=== PATIENT | male | born 1995 | race Caucasian/White ===

== ENCOUNTER 2024-04-26 11:03 | Emergency (ER) | payer OTHER, SELFPAY ==
[2024-04-26 11:14] VITALS: PULSE 120; O2SAT 94
[2024-04-26 11:18] VITALS: BP 102/33; PULSE 103; RESP 22; TEMP 36.1; O2SAT 91; BMI 23.0
--- NOTE | 2024-04-26 11:28 | PC.NURSE ---
patient placed on 1L w/ capnography for monitoring at this time.
--- NOTE | 2024-04-26 11:33 | ED_ITS ---
HPI - Overdose General Chief Complaint: Overdose Stated Complaint: FOUND UNRESPONSIVE OUTSIDE NARCAN GIVEN Time Seen by Provider: 04/26/24 11:07 Source: EMS Mode of arrival: EMS History of Present Illness ED Provider: Dr Thomas HPI Narrative: 28-year-old male brought in by EMS after being found unresponsive outside with pinpoint pupils and received 2 mg of Narcan with good response, minimal respiratory support, remains somewhat altered at this time but good respiration. Related Data Allergies Allergy/AdvReac Type Severity Reaction Status Date / Time Unable to Assess Allergy Verified 04/26/24 11:21 Review of Systems Review of Systems: Yes Unobtainable due to mental condition PMFSH Past Medical History Source: nursing notes reviewed Social History Social History Do you have a plan to hurt others: No Plan Physical Exam Vital Signs: Vital Signs: Last Vital Signs Temp 96.9 F 04/26/24 11:18 Pulse 97 04/26/24 14:54 Resp 16 04/26/24 14:54 BP 104/63 04/26/24 14:54 Pulse Ox 98 04/26/24 14:54 O2 Del Method Nasal Cannula 04/26/24 14:54 O2 Flow Rate 1 04/26/24 14:54 BMI result Body Mass Index 23.0 VITAL SIGNS: Reviewed. GENERAL: Well developed, well nourished, in no acute distress. HEAD: Normocephalic/atraumatic EYES: PERRLA, EOMI EARS: Ext canals without abnormality NOSE: Nares patent bilateral OROPHARYNX: no oral lesions noted, posterior pharynx clear NECK: Supple, no adenopathy LUNGS: Normal breath sounds. No adventitious sounds or accessory muscle use. SpO2<90> CARDIOVASCULAR: Regular rate and rhythm without noted murmurs ABDOMEN: Soft, non-tender, non-distended with bowel sounds. MUSCULOSKELETAL: No tenderness, deformities, or effusions noted on gross inspection. EXTREMITIES: No cyanosis, clubbing or edema. SKIN: Inspection of the skin reveals no rashes NEUROLOGIC: Sleeping but arousable to pain and oriented x 2. Strength and sensation to light touch were grossly intact x 4. Medications Administered Discontinued Medications Generic Name Dose Route Start Last Admin Trade Name Freq PRN Reason Stop Dose Admin Naloxone HCl 4 mg 04/26/24 12:12 04/26/24 12:25 Naloxone Hcl Nasal 4 Mg [place] NOSTRILALT 04/26/24 12:13 4 mg ONCE ONE Administration Medical Decision Making Medical Decision Making MDM Narrative: 28-year-old male with history and clinical presentation of overdose, unknown substance, ordered urine tox screen but at this time observing on cardiac monitoring with supplemental oxygen of 1 L via nasal cannula and capnography. Patient's respiratory rate and depth are appropriate so no further Narcan being administered at this time. Patient required supplemental oxygen, but has been titrated off of the oxygen, denies any drug ingestion, is awake and alert and will be discharged with home Narcan. Differential Diagnosis Differential Diagnoses: The differential diagnosis associated with the presentation includes Please see the discussion above Admission/Observation Consideration of admission/observation: Escalation of care including admission/observation considered Please see the discussion above Critical Care Time Critical Care Time Critical Care Time: Yes Total Critical Care Time: 45 Attestation: I personally attest to this time spent taking care of the patient. Discharge Plan Discharge Clinical Impression: Drug overdose Patient Disposition: Still a Patient Instructions: Adult Overdose (ED) Additional Instructions: Return to the emergency room if you decide you would like to seek detox.
--- NOTE | 2024-04-26 11:40 | PC.NURSE ---
patient changed into hospital attire, belongings placed in [facility]
[2024-04-26] MEDS: Naloxone HCl Nasal 4 MG SPRAY NOSTRILALT (12:25)
--- NOTE | 2024-04-26 12:38 | PC.NURSE ---
administered 4mg nasal narcan, oxygen improved at this time. patient moving more freely in bed, turning and rolling in bed. placed on playground monitor, IV established in need of prn medication administration
--- NOTE | 2024-04-26 13:10 | PC.NURSE ---
patient more awake, attempting to stand and get out of bed. assisted back into bed by staff. patient had removed self from medical equipment, placed back on patient who is now resting quietly in bed.
[2024-04-26 14:54] VITALS: BP 104/63; PULSE 97; RESP 16; O2SAT 98
[2024-04-26] MEDS: Naloxone HCl Nasal TAKE HOME 4 MG SPRAY 8 MG NOSTRILALT (18:15)
[2024-04-26 18:38] VITALS: BP 115/63; PULSE 88; RESP 16; TEMP 37.2; O2SAT 97
[2024-04-26] MEDS: Ondansetron ODT 4 MG TAB.RAPDIS TRANSLINGU (18:38)
== END 2024-04-26 18:39 | disposition home or self-care (01) ==
PROVIDERS: Emergency Provider Student in an Organized Health Care Education/Training Program
DX: T50.901A Poisoning by unspecified drugs, medicaments and biological substances, accidental (unintentional), initial encounter (principal); Y92.9 Unspecified place or not applicable
CPT/HCPCS: 99284

== ENCOUNTER 2025-11-23 14:31 | Emergency (ER) | payer MEDICAID, SELFPAY ==
--- NOTE | ~2025-11-23 | XR_ITS ---
EXAMINATION: XR FOOT, RIGHT CLINICAL INFORMATION: Redness. IVD. osteo? COMPARISON: None available. TECHNIQUE: AP, lateral, and oblique views of the right foot. FINDINGS: There is loss of the cortical white line involving the tuft of the fifth digit on the oblique view. No other abnormalities are identified. XR/XR foot RT min 3V IMPRESSION: There is loss of the cortical white line of the medial aspect of the tuft of the fifth digit. If there is skin changes in this region or ulceration, consider osteomyelitis. Electronically signed by: David Sloan MD 11/23/2025 03:46 PM EST
--- NOTE | ~2025-11-23 | XR_ITS ---
EXAMINATION: XR TIBIA AND FIBULA, RIGHT CLINICAL INFORMATION: redness. iVD. osteo/ COMPARISON: None available. TECHNIQUE: AP and lateral views of the right tibia and fibula were obtained. FINDINGS: The bones and soft tissues are normal. No fracture. No osseous lesions. XR/XR tibia fibula RT 2V IMPRESSION: Unremarkable right tibia and fibula. Electronically signed by: David Sloan MD 11/23/2025 03:47 PM EST
--- NOTE | ~2025-11-23 | US_ITS ---
EXAMINATION: US TRIPLEX LOWER EXTREMITY, RIGHT CLINICAL INFORMATION: Swelling and redness right leg. COMPARISON: None available. TECHNIQUE: Color-flow triplex imaging with spectral analysis and compression Doppler were performed on the right lower extremity. FINDINGS: Respiratory variation, normal compression and augmented flow are noted throughout the right lower extremity. The visualized common femoral vein, superficial femoral vein, profunda femoral vein, popliteal vein and midcalf peroneal and posterior tibial venous segments show no evidence of deep venous thrombosis. There is no Alexis's cyst. US/US venous duplex LE RT IMPRESSION: No evidence of deep venous thrombosis involving the right lower extremity. Electronically signed by: Chapito Hoover MD 11/23/2025 04:33 PM EST
--- OUTSIDE RECORDS SUMMARY | 2025-11-23 10:45 | XMS_ITS | Encounter Summary ---
Author Organization [facility] Address [address] [place] [address] Care Team Providers Care Business Machines Teacher Name Role Phone Unavailable Primary Care Provider Unavailabl e Reason for Visit * Reason Comments OBAT F/U Encounter Details Date Type Department Care Team (Latest Contact Info) Description 11/23/2025 10:45 AM EST Clinical Support [facility] [address] [place] [address] Sylwia Dior RN Uncomplicated opioid dependence (CMS/HCC) (HCC) (Primary Dx); Tobacco use disorder; Cocaine use Social History Tobacco Use Types Packs/Day Years Used Date Smoking Tobacco: Every Day Cigarettes Smokeless Tobacco: Never Depression Answer Date Recorded Patient Health Questionnaire-9 Score 21 11/16/2025 Patient Health Questionnaire-9 Score 21 11/16/2025 Last PHQ-9: Questionnaire Data Not on file 1 01/17/2025 Housing Stability Answer Date Recorded What is your housing situation today? I do not have housing (Staying with others, in a hotel, in a fpc, living outside on the street, on a beach, in a car, or in a park 11/16/[address] you li ve. Do you have problems with any of the following? Not on file 11/16/2025 Depression Answer Date Recorded Patient Health Questionnaire-2 Score 6 11/16/2025 Sex and Gender Information Value Date Recorded Sex Assigned at Male 01/12/2025 9:39 AM EST Legal Sex Male 10:55 AM EST Gender Identity Male 01/12/2025 9:39 AM EST Sexual Orientation Straight 01/12/2025 9: 39 AM EST documented as of this encounter Progress Notes * Sylwia Dior RN - 11/23/2025 10:45 AM EST MD Intake Utox + BUP, ARMANDO, FEN, THC Jenaro returns to restart his treatment for opioid use disorder. He was released from residential yesterday. He is not on parole or probation. He is currently homeless with his girlfriend. He does not have anywhere to stay. Reports he was treated with Suboxone 17/03 while incarcerated. States this has been effective. Currently, he is not interested in Sublocade. Denies any substance use since he is discharged. He is aware that anything on the street can be contaminated with fentanyl. No adverse reactions. History of IV heroin and cocaine use. No adverse drug reactions. He is down because of how his life is right now. He is sad. He denies any current suicidal ideation. He knows Sukhi Ramos college sports coach and Natasha Alvarado team therapist. He does not drink alcohol. He smokes 3 to 4 cigarettes a day. He also smokes marijuana. For the per application packaging consultant. He cannot read or write. History of untreated Hep C. As above. Safe use reviewed. Given narcan & FEN test strips. Informed that he will develop WD if he suddenly stops Suboxone. He met with Sukhi college sports coach and Natasha Alvarado team therapist. Ree Hummel RN, did his intake. She is also a Hep C RN. Placed Hep C labs to which I added. Continue 17/03 daily. He is not interested in Sublocade. Declines PrEP-same partner for 5 years. They are both homeless. He will need to get a PCP. F/U 1 week. Cocaine use As above. Safe use reviewed. Given narcan and FEN test strips. Continue to monitor. Tobacco use disorder Periodically review. Diagnoses and all orders for this visit: Uncomplicated opioid dependence (CMS/HCC) ([facility]) - RPR (Monitor) with Reflex to Titer; Future - T-SPOT??.TB; Future - Chlamydia/N. Gonorrhoeae RNA, TMA, Vaginal - Buprenorphine HCl-Naloxone HCl (Suboxone) 8-2 MG SL film; Place 1 Film under the tongue 2 times daily. Tobacco use disorder Cocaine use TODAY 11/23/25 UTOX: +bup, armando, opi, fen, thc Jenaro presented today for OBAT RN IN PERSON VISIT for Opioid Use Disorder. He is alert and oriented. Speech clear, coherent and goal directed. Easily engaged. Tearful during interaction. States he's not doing well at all. He declined offer of assistance to access a detox today. He said he will see how he does over the next week. He has been using illicit opiates IV over the past two days. He is rubin ving difficulty with ambulation, walking with a limp. He showed telegraphic typewriter operator and MYRON Tomas who assisted with interpretation his foot and ankle. Right ankle was swollen, area on top of left foot and bottom of the top of left ankle was hardened to touch. He said he had injected in two areas on his foot area. Textile Designer noted blackened left middle toenail bed. Pt stated it became blackened after he injected into his foot. Textile Designer strongly encouraged him to go to the [facility] to be seen to avoid any further damageor injury to the area and risks of refusing assessment and treatment. He said he would but right now he had to go to [facility] where his girlfriend had an appt. He was strongly encouraged to be seen in theER at [facility]. He agreed to f/u. Plan: Buprenorphine-naloxone dosing schedule of 16/4 mg daily and management of side effects reviewed. Recovery support, risk reduction (including Narcan), and behavioral health attendance reviewed. Appointment for 1 week given. Patient expressed understanding and agreement with continuing plan of care. This information has been disclosed to you from records protected by federal confidentiality rules (42 CFR Part 2). The federal rules prohibit you from making any further disclosure of information inthis record that identifies a patient as having or having had a substance use disorder either directly, by reference to publicly available information, or through verification of such identification by another person unless further disclosure is expressly permitted by the written consent of the individual whose information is being disclosed or as otherwise permitted by (see2.3.1). The federal rules restrict any use of the information to investigate or prosecute with regard to a crime any patient with a substance use disorder, except as provided at 2.12??(5) and 2.65. documented in this encounter Plan of Treatment Upcoming Encounters Date Type Department Care Team (Late st Contact Info) Description 11/30/2025 11:15 AM EST Clinical Support [facility] [address] [place] [address] Sylwia Dior RN documented as of this encounter Procedures Procedure Name Priority Date/Time Associated Diagnosis Comments POCT CRISTIANA-14 URINE DRUG SCREEN Routine 11/23/2025 12:34 PM EST Uncomplicated opioid dependence (CMS/HCC) (HCC) documented in this encounter Results * (ABNORMAL) POCT CRISTIANA-14 Urine Drug Screen (11/23/2025 12:34 PM EST) Amphetamine Screen, Urine Negative Negative Barbiturate Screen, Urine Negative Negative Buprenophine Screen, Urine Positive(A) Negative Benzodiazepines Screen, Urine Negative Negative Cocaine Screen, Urine Positive(A) Negative Fentanyl, Urine Positive(A) Negative MDMA Urine Negative Negative ng/mL Methamphetamine Screen Urine Negative Negative Opiate Screen, Urine Positive(A) Negative Methadone Screen, Urine Negative Negative Oxycodone Screen, Urine Negative Negative Phencyclidine (PCP), Urine Negative Negative THC Positive(A) Negative Urine Urine specimen obtained by clean catch procedure / Unknown 11/23/2025 12:34 PM EST Maximino Garcia MD POINT OF CARE TEST ENTER/EDIT ORDERABLES Final Result documented in this encounter Visit Diagnoses Diagnosis Uncomplicated opioid dependence (CMS/HCC) (HCC)- Primary Tobacco use disorder Cocaine use documented in this encounter Additional Health Concerns Assessment Noted Time PHQ-9 Depression Total Score: 21 11/16/ 025 1:19 PM EST documented as of this encounter
[2025-11-23 14:52] VITALS: BP 118/63; PULSE 95; RESP 18; TEMP 36.8; O2SAT 95; BMI 19.5
--- NOTE | 2025-11-23 15:06 | ED.GENADULT ---
HPI - General Adult General Chief complaint: General Medical Stated complaint: R Leg Swollen- Hurts/ Cant Move Time Seen by Provider: 11/23/25 16:35 Source: patient, family and enrollment clerk Mode of arrival: ambulatory Limitations: no limitations History of Present Illness ED Provider: WILLIAM OMER narrative: 30-year-old male with past medical history of IVDA he is also on Suboxone. He admits to injecting in the right ankle. He started to notice redness and swelling of the area as well as some fevers and chills. Denies any nausea vomiting. On arrival he is already told me that he is not going to stay overnight but he is agreeable to lab work x-rays and ultrasound. I did try to talk to him and state that I was worried that he would have significant issues such as infection in the joint, sepsis, bone infection. He is aware and states he is not staying overnight he was told he could come back at any time. He tells me this is the 1st infection he has ever had from injecting. He admits he is not able to walk on the foot or bend his ankle. MD complaint: Cellulitis Onset (ago): day(s) (1) Location: right and lower extremity Radiation: non-radiation Severity: moderate Quality: aching Pain Consistency: constant Relieving factors: none Exacerbating factors: movement Associated symptoms: fever/chills, malaise and rash Treatments prior to arrival: none Related Data Previous Rx's ?Medication ?Instructions ?Recorded cephalexin 500 mg capsule 500 mg PO QID 7 days #28 caps 11/23/25 doxycycline hyclate 100 mg capsule 100 mg PO BID 7 days #14 caps 11/23/25 Allergies Allergy/AdvReac Type Severity Reaction Status Date / Time Unable to Assess Allergy Verified 11/23/25 14:54 Review of Systems Review of Systems: Yes all other systems are reviewed and are negative PMFSH Past Medical History Attestation statement: The following information was validated with the patient. Source: old records reviewed Medical History Intravenous drug abuse Social History Social History (Updated 11/23/25 @ 17:14 by Carri Martinez DO) Patient Tobacco Use Status: Tobacco use Unknown Use of substances other than those prescribed or required for medical reasons: Yes Substance Use Type: IV Drugs Advance Directives: No Advance Directives Information Provided: No Physical Exam ED Vital Signs: Vital Signs - 24 hr 11/23/25 14:52 11/23/25 19:00 11/23/25 19:37 Temperature 98.2 F 98.2 F 98.2 F Pulse Rate 95 98 98 Respiratory Rate 18 18 18 Blood Pressure 118/63 112/66 112/66 Pulse Oximetry 95 96 96 Oxygen Delivery Method Room Air Room Air Room Air BMI result Body Mass Index 19.5 Appearance: Alert. Oriented X3. No acute distress. Eyes: Pupils equal, round and reactive to light. ENT: Pharynx normal. Neck: Normal inspection. Neck supple. CVS: Normal heart rate and rhythm. Pulses normal. Respiratory: No respiratory distress. Breath sounds normal. Abdomen: Soft and nontender. Skin: Skin warm and dry. Normal skin color. Normal skin turgor. Extremities: His right leg is red and hot to touch she has areas of ecchymosis, his 3rd toe nail is ecchymotic the toe itself is red and swollen, he has sensation intact and he has a 2+ DP pulse. I am not able to range the joint due to pain though he does not have a massive effusion. There are red streaks going up the leg as well Neuro: Oriented X 3. No motor deficit. No sensory deficit. CN2-12 intact Course Course Course Narrative: RME: 30-year-old male presents to ED for right ankle leg swelling after injecting himself with heroin couple of days ago. Now right leg as foot swollen red. labs, xray, and uS orderd Medications Administered Discontinued Medications Generic Name Dose Route Start Last Admin Trade Name Freq PRN Reason Stop Dose Admin Diphenhydramine HCl 25 mg 11/23/25 19:19 11/23/25 19:21 Diphenhydramine Hcl 50 Mg/Ml Vial IVPUSH 11/23/25 19:20 25 mg ONCE ONE Administration Piperacillin Sod/Tazobactam 50 mls @ 100 mls/hr 11/23/25 16:50 11/23/25 17:49 Sod 3.375 gm/ Sodium Chloride IV 11/23/25 17:19 Infused ONCE ONE Infusion Vancomycin HCl 1,500 mg/ 500 mls @ 333.333 mls/hr 11/23/25 16:50 11/23/25 19:14 Sodium Chloride IV 11/23/25 18:19 Infused ONCE ONE Infusion Medical Decision Making Medical Decision Making MDM Narrative: 30-year-old male with past medical history IVDA here with 1 day of right-sided cellulitis to the foot and ankle. At this time I started labs, cultures, x-rays. He is neurovascularly intact there is no signs of necrotizing infection there is no crepitus compartments are soft and compressible. It is not rapidly spread for his reports. I am going to admit him on IV antibiotics but after discussion with them he adamantly refuses he is alert and oriented x3 he is able to answer all questions he is also able to repeat repeat back to me my concerns of why he should stay due to this infection at this time I will dose with IV antibiotics and DC him home with oral antibiotics as well as limitation return at any time Differential Diagnosis Differential Diagnoses: The differential diagnosis associated with the presentation includes Cellulitis, septic joint, abscess, osteomyelitis Admission/Observation Consideration of admission/observation: Escalation of care including admission/observation considered Patient is leaving AMA Lab Data [facility] Lab Attestation statement: I reviewed the patient's lab results. 11/23/25 16:40 11/23/25 16:40 Labs: Lab Results 11/23/25 11/23/25 Range/Units 16:40 17:15 WBC 7.0 (4.8-10.8) X10*3/uL RBC 4.97 (4.60-5.80) X10*6/uL Hgb 14.2 (14.0-18.0) g/dl Hct 42.3 (42.0-52.0) % MCV 85.1 (80.0-98.0) fL MCH 28.6 (27.0-33.0) pg MCHC 33.6 (31.0-36.0) g/dl RDW 12.9 (11.0-16.0) % Plt Count 193 (160-400) X10*3/uL MPV 12.9 H (9.4-12.4) fL Immature Gran % (Auto) 0.3 (0.0-0.4) % Neut % (Auto) 66.9 (45-73) % Lymph % (Auto) 21.8 (20-40) % Oliver % (Auto) 10.0 (2-11) % Eos % (Auto) 0.3 (0-4) % Baso % (Auto) 0.7 (0-2) % Lymph # (Auto) 1.5 (1.2-4.9) X10*3/uL Oliver # (Auto) 0.7 (0.1-1.2) X10*3/uL Eos # (Auto) 0.0 (0.0-0.4) X10*3/uL Baso # (Auto) 0.1 (0.0-0.2) X10*3/uL Abs Immat Gran (auto) 0.02 (0.00-0.03) X10*3/uL Absolute Neuts (auto) 4.7 (2.0-8.3) x10*3/uL Absolute Nucleated RBC 0.000 (0.0-0.012) X10*3/uL Nucleated RBC % (auto) 0.0 (0.0-0.2) /100WBC ESR 5 (1-15) MM/HR Sodium 140 (135-145) mmol/L Potassium 4.0 (3.3-5.1) mmol/L Chloride 100 (96-108) mmol/L Carbon Dioxide 27 (22-29) mmol/L Anion Gap 17 (12-20) BUN 14 (9-16) mg/dL Creatinine 0.80 (0.5-1.4) mg/dL Estim Creat Clear Calc 122.3 Estimated GFR > 60 Random Glucose 77 (60-115) mg/dL Lactic Acid 1.2 (0.5-2.0) mmol/L Calcium 9.8 (8.4-10.2) mg/dL Total Bilirubin 1.4 H (0.0-1.0) mg/dL AST 129 H (5-37) U/L ALT 87 H (0-40) U/L Alkaline Phosphatase 82 (39-117) U/L C-Reactive Protein 0.83 H (< or = 0.50) mg/dL Total Protein 8.4 H (6.5-8.0) g/dL Albumin 5.1 H (3.5-5.0) g/dL Independent Interpretation I performed an independent interpretation of an: Plain X-Ray (Bony erosion on the toe) and Ultrasound (No DVT) Radiology Impression Discussion of test interpretation with radiology: I have reviewed the radiologist's reading. Independent Historian Clinical information obtained from an independent historian. History obtained from or confirmed by: Friend and Other Prescription Management I considered prescription management with: Antibiotic Discharge Plan Discharge Clinical Impression: Cellulitis of right ankle Patient Disposition: Left Against Medical Advice Instructions: Cellulitis (ED), Against Medical Advice (ED) Additional Instructions: You were offered admission but refused you can return at any time I am Very concerned that you will have a worsening infection that can go into your blood stream This could also affect your ankle joint Take all antibiotics Remember you can return at any time On a cephalosporin?antibiotic, softer bowel movements are to be expected. Call your provider if you move your bowels more than 4 times a day, your bowel movements are almost all liquid, or you get a rash.?? On doxycycline, do not take pills immediately before going to bed and swallow pills with plenty of water. Avoid direct sunlight, iron, antacids, and Pepto Bismol. Call your provider if you develop new ringing in your ears, new problems hearing, dizziness, difficulty swallowing, rash, abdominal discomfort, nausea, or diarrhea.? Prescriptions: New doxycycline hyclate 100 mg capsule 100 mg PO BID 7 Days Qty: 14 0RF cephalexin 500 mg capsule 500 mg PO QID 7 Days Qty: 28 0RF Interventions: ED Discharge Assessment Last Done: 11/23/25 19:37 Discharge Date/Time: 11/23/25 19:37 Print Language: Faroese
[2025-11-23 16:45] LABS: MANUAL DIFF FLAG NO
[2025-11-23 16:46] LABS: Hematocrit 42.3 % (42.0-52.0); Hemoglobin 14.2 g/dl (14.0-18.0); Imm Gran Abs Auto 0.02 X10*3/uL (0.00-0.03); Imm Gran Pct Auto 0.3 % (0.0-0.4); Lymphocytes Absolute Auto 1.5 X10*3/uL (1.2-4.9); Mean Corpuscular HGB Conc 33.6 g/dl (31.0-36.0); Mean Corpuscular Hemoglobin 28.6 pg (27.0-33.0); Mean Corpuscular Volume 85.1 fL (80.0-98.0); NRBC Abs Auto 0.000 X10*3/uL (0.0-0.012); NRBC Pct Auto 0.0 /100WBC (0.0-0.2); Platelet Count 193 X10*3/uL (160-400); Red Blood Count 4.97 X10*6/uL (4.60-5.80); White Blood Count 7.0 X10*3/uL (4.8-10.8)
[2025-11-23 17:01] LABS: Alanine Aminotransferase 87 U/L (0-40); Albumin Level 5.1 g/dL (3.5-5.0); Alkaline Phosphatase 82 U/L (39-117); Anion Gap 17 (12-20); Aspartate Amino Transferase 129 U/L (5-37); Blood Urea Nitrogen 14 mg/dL (9-16); Calcium 9.8 mg/dL (8.4-10.2); Carbon Dioxide 27 mmol/L (22-29); Chloride 100 mmol/L (96-108); Creatinine Clr Calc Pharmacy 122.3; Estimated Glomerular Filt Rate > 60; Potassium 4.0 mmol/L (3.3-5.1); Sodium 140 mmol/L (135-145); Total Protein 8.4 g/dL (6.5-8.0)
--- NOTE | 2025-11-23 17:08 | PC.NURSE ---
attempted iv x 2, another nurse attempt x 1. tom PALMA attempting U/s guided iv now,.
--- OUTSIDE RECORDS SUMMARY | 2025-11-23 17:10 | XMS_ITS | Encounter Summary ---
Author Organization [employer] [facility] Address [address] 7t [place] [address] Care Team Providers Care Streetcar Operator Name Role Phone Unavailable Primary Care Provider Unavailabl e Encounter Details Date Type Department Care Team (Late st Contact Info) Description 11/23/2025 Orders Only GENERIC EXTERNAL DATA DEPARTMENT Provider, Generic External Data Social History Tobacco Use Types Packs/Day Years [...] with others, in a hotel, in a custodial, living outside on the street, on a [...] AM EST documented as of this encounter Plan of Treatment Upcoming Encounters Date Type Department Care Team (Late st Contact Info) Description 11/30/2025 11:15 AM EST Clinical Support [facility]INE [address] [place] [address] Sylwia Dior RN documented as of this encounter Procedures Procedure Name Priority Date/Time Associated Diagnosis Comments SED RATE BY MODIFIED WESTERGREN Routine 11/23/2025 4:40 PM EST C-REACTIVE PROTEIN Routine 11/23/2025 4: 40 PM EST COMPREHENSIVE METABOLIC PANEL Routine 11/23/2025 4:40 PM EST documented in this encounter Results * (ABNORMAL) C-reactive Protein (11/23/2025 4:40 PM EST) C Reactive Protein 0.83(H) < or = 0.50 mg/dL [facility] 11/23/2025 4:40 PM EST 11/23/2025 4:43 PM EST Narrative [facility] - 11/23/2025 5:01 PM EST uto to collect x3 us Generic External Data Provider LAB BLOOD ORDERAB LES Final Result [facility] [address] [place] [phone] * (ABNORMAL) Comprehensive Metabolic Panel (11/23/2025 4:40 PM EST) Pathologist [facility] [place] Sodium 140 135 - 145 mmol/L [facility] Potassium 4.0 3.3 - 5.1 mmol/L [facility] Comment:Mild Hemolysis.Inter pret result with caution Chloride 100 96 - 108 mmol/L [facility] Carbon Dioxide 27 22 - 29 mmol/L [facility] Anion Gap 17 12 - 20 [facility] Urea Nitrogen (BUN) 14 9 - 16 mg/dL [facility] Creatinine, Serum 0.80 0.5 - 1.4 mg/dL [facility] Creatinine Clr Calc Pharmacy 122.3 [facility] Comment:eGFR (calculated fro m the MDRD study equation) and eCrCl(calculated from the Cockcroft-Gault equation) are based ondifferent parameters and may not yield comparable results.If eCrCl result is absurd, please check patient'sheight/weight. Estimated Glomerular Filt Rate >60 [facility] Comment:Chronic Kidney Disea se: Estimated GFR < 60 mL/min/1.42t4Irvccp Kidney Disease: Estimated GFR < 15 mL/min/1.73m2 Glucose 77 60 - 115 mg/dL [facility] Calcium 9.8 8.4 - 10.2 mg/dL [facility] Bilirubin, Total 1.4(H) 0.0 - 1.0 mg/dL [facility] Aspartate Amino Transferase 129(H) 5 - 37 U/L [facility] Comment:Mild Hemolysis.Inter pret result with caution Alanine Aminotransferase 87(H) 0 - 40 U/L [facility] Total Protein 8.4(H) 6.5 - 8.0 g/dL [facility] Comment:Mild Hemolysis.Inter pret result with caution Albumin Level 5.1(H) 3.5 - 5.0 g/dL [facility] Alkaline Phosphatase 82 39 - 117 U/L [facility] 11/23/2025 4:40 PM EST 11/23/2025 4:43 PM EST Narrative [facility] - 11/23/2025 5:01 PM EST uto to collect x3 us Generic External Data Provider LAB BLOOD ORDERAB LES Final Result [facility] [address] [place] [phone] * Sed Rate by Modified Westergren (11/23/2025 4:40 PM EST) Erythrocyte Sedimentation Rate 5 1 - 15 MM/HR [facility] Comment:Patients with polycy themia and many hemoglobin abnormalitiesmay have depressed sed rates whereas patients with anemiamay have elevated sed rates. 11/23/2025 4:40 PM EST 11/23/2025 4:43 PM EST Narrative [facility] - 11/23/2025 4:51 PM EST uto to collect x3 us Generic External Data Provider LAB BLOOD ORDERAB LES Final Result [facility] [address] [place] [address] [phone] documented in this encounter Visit Diagnoses Not on filedocumented in this encounter Additional Health Concerns Assessment Noted Time PHQ-9 Depression Total Score: 21 12/16/2 025 1:19 PM EST documented as of this encounter
--- OUTSIDE RECORDS SUMMARY | 2025-11-23 17:10 | XMS_ITS | Encounter Summary ---
Author Organization [employer] [facility] Address [address]t [place] [address] Care Team Providers Care Solutions Executive Cloud Sales Name Role Phone Unavailable Primary Care Provider Unavailabl e Reason for Visit * Reason Onset Date Comments Med Refill 11/17/2025 Encounter Details Date Type Department Care Team (Late Contact Info) Description 11/17/2025 Refill [facility] [address] [place] [address] Sylwia Dior RN Uncomplicated opioid dependence (CMS/HCC) ([facility]) Social History Tobacco Use Types Packs/Day Years [...] with others, in a hotel, in a group home, living outside on the street, on a [...] Description 11/30/2025 11:15 AM EST Clinical Support [facility] [address] [place] [address] Sylwia Dior RN documented as of this encounter Visit Diagnoses Diagnosis Uncomplicated opioid dependence (CMS/HCC) (HCC) documented in this encounter Additional Health Concerns Assessment Noted Time PHQ-9 Depression Total Score: 21 025 1:19 PM EST documented as of this encounter
--- OUTSIDE RECORDS SUMMARY | 2025-11-23 17:10 | XMS_ITS | Encounter Summary ---
Author Organization [employer] [facility] Address [address] [place] [address] 7t [place] [address] Care Team Providers Care Anesthesiologist Assistant Certified Name Role Phone Unavailable Primary Care Provider Unavailabl e Reason for Visit * Reason Onset Date Comments hep c tx 11/23/2025 Encounter Details Date Type Department Care Team ([facility] st Contact Info) Description 11/23/2025 Telephone [facility] [address] [place] [address] Ree Richardson RN [address] [place] [address] hep c tx Social History Tobacco Use Types Packs/Day Years [...] with others, in a hotel, in a fdc, living outside on the street, on a [...] AM EST documented as of this encounter Miscellaneous Notes * Telephone Encounter - Ree Richardson RN - 11/23/2025 12:25 PM EST RN spoke to pt and reminded of hep c labs, pt agrees to POC and will complete documented in this encounter Plan of Treatment Upcoming Encounters Date Type Department Care Team (Late st Contact Info) Description 11/30/2025 11:15 AM EST Clinical Support [facility] [address] [place] [phone] Sylwia Dior RN documented as of this encounter Visit Diagnoses Not on filedocumented in this encounter Additional Health Concerns Assessment Noted Time PHQ-9 Depression Total Score: 21 025 1:19 PM EST documented as of this encounter
--- OUTSIDE RECORDS SUMMARY | 2025-11-23 17:10 | XMS_ITS | Encounter Summary ---
Author Organization [employer] [facility] Address [address] 7t [place] [address] Care Team Providers Care Construction Safety Manager Name Role Phone Unavailable Primary Care Provider Unavailabl e Encounter Details Date Type Department Care Team (Late st Contact Info) Description 03/10/[address] [address] Maximino Garcia MD [address] [place] [phone] Social History Tobacco Use Types Packs/Day Years Used Date Smoking Tobacco: Every Day Cigarettes Smokeless Tobacco: Never Depression Answer Date Recorded Patient Health Questionnaire-9 Score 21 02/16/2025 Patient Health Questionnaire-9 Score 21 02/16/2025 Last PHQ-9: Questionnaire Data Not on file 0 02/16/2025 Depression Answer Date Recorded Patient Health Questionnaire-2 Score 6 02/16/2025 Sex and Gender Information Value Date Recorded Sex Assigned at Male 01/12/2025 9:39 AM EST Legal Sex Male 10:55 AM EST Gender Identity Male 01/12/2025 9:39 AM EST Sexual Orientation Straight 01/12/2025 9: 39 AM EST documented as of this encounter Plan of Treatment Upcoming Encounters Date Type Department Care Team (Late st Contact Info) Description 11/30/2025 11:15 AM EST Clinical Support [address] [address] Sylwia Dior RN documented as of this encounter Visit Diagnoses Not on filedocumented in this encounter Additional Health Concerns Assessment Noted Time PHQ-9 Depression Total Score: 21 025 11:24 AM EDT documented as of this encounter
--- OUTSIDE RECORDS SUMMARY | 2025-11-23 17:10 | XMS_ITS | Encounter Summary ---
Author Organization [employer] [facility] Address [address] [place] [address] Care Team Providers Care Processes Chemical Design Engineer Name Role Phone Unavailable Primary Care Provider Unavailabl e Encounter Details Date Type Department Care Team (Latest Contact Info) Description 11/23/2025 Travel Social History Tobacco Use Types Packs/Day Years [...] Description 11/30/2025 11:15 AM EST Clinical Support [facility] [address] [place] [address] Sylwia Dior RN documented as of this encounter Visit Diagnoses Not on filedocumented in this encounter Additional Health Concerns Assessment Noted Time PHQ-9 Depression Total Score: 21 11/16/ 025 1:19 PM EST documented as of this encounter
--- OUTSIDE RECORDS SUMMARY | 2025-11-23 17:10 | XMS_ITS | Encounter Summary ---
Author Organization [employer] [facility] Address [address] 7[address] [place] [address] Care Team Providers Care Machines Technician Name Role Phone Unavailable Primary Care Provider Unavailabl e Encounter Details Date Type Department Care Team (Late st Contact Info) Description 01/11/2025 Orders Only [facility] [address] [place] [phone] Ray Villegas MD [address] [place] [phone] Social History Tobacco Use Types Packs/Day Years Used Date Smoking Tobacco: Never Assessed Sex and Gender Information Value Date Recorded Sex Assigned at Male 01/12/2025 9:39 AM EST Legal Sex Male 10:55 AM EST Gender Identity Male 01/12/2025 9:39 AM EST Sexual Orientation Straight 01/12/2025 9: 39 AM EST documented as of this encounter Plan of Treatment Upcoming Encounters Date Type Department Care Team (Late st Contact Info) Description 11/30/2025 11:15 AM EST Clinical Support [facility] [address] [place] [phone] Sylwia Dior RN documented as of this encounter Visit Diagnoses Not on filedocumented in this encounter
--- OUTSIDE RECORDS SUMMARY | 2025-11-23 17:10 | XMS_ITS | Clinical Summary ---
Author Organization [employer] Address [address] 7[address] [place] [address] Care Team Providers Care Photogeologist Name Role Phone Unavailable Primary Care Provider Unavailabl e Allergies No known active allergies Medications * This document contains information received from the source organization and may not represent a complete record from that organization. hydrOXYzine pamoate (Vistaril) 50 MG capsule Take 1 capsule (50 mg) by mouth every 6 (six) hours if needed for anxiety. 10 capsule 01/11/20 25 Active cloNIDine (Catapres) 0.1 MG tablet Take 1 tablet (0.1 mg) by mouth every 8 (eight) hours if needed (withdrawal). 8 tablet 01/11/20 25 026 Active docusate sodium (Colace) 100 MG capsuleIndica tions:Uncompl icated opioid use 1-2 capsules PO at bedtime prn constipation (stool softener) 60 capsule 3 01/12/20 25 Active acetaminophen (Tylenol) 500 MG tablet Take 2 tablets (1,000 mg) by mouth every 6 (six) hours if needed for moderate pain or fever. 30 tablet 02/10/20 25 Active ibuprofen 400 MG tablet Take 1 tablet (400 mg) by mouth every 6 (six) hours if needed for moderate pain or fever for up to 30 doses. 30 tablet 02/10/20 25 Active ondansetron (Zofran) 4 MG tablet Take 1 tablet (4 mg) by mouth every 8 (eight) hours if needed for nausea or vomiting. 12 tablet 02/10/20 25 Active naloxone (Narcan) 4 mg/0.1 mL nasal spray Administer 1 spray (4 mg) into affected nostril(s) if needed for opioid reversal. May repeat every 2-3 minutes if needed, alternating nostrils, until medical assistance becomes available. 2 each 3 06/01/20 25 026 Active Buprenorphine HCl-Naloxone HCl (Suboxone) 8-2 MG SL filmIndicatio ns:Uncomplica daisy opioid dependence (CMS/HCC) (HCC) Place 1 Film under the tongue 2 times daily. 14 Film 11/22/20 25 025 Active buprenorphine -naloxone (Suboxone) 12-3 MG per sublingual filmIndicatio ns:Uncomplica daisy opioid use Place 1 Film under the tongue Once per day for 7 days. 7 Film 02/27/20 25 025 Discontinued(D ose adjustment) Buprenorphine HCl-Naloxone HCl (Suboxone) 8-2 MG SL filmIndicatio ns:Uncomplica daisy opioid dependence (CMS/HCC) (HCC) Place 1 Film under the tongue Once per day for 7 days. 7 Film 06/01/20 25 025 Discontinued(D ose adjustment) Buprenorphine HCl-Naloxone HCl (Suboxone) 8-2 MG SL filmIndicatio ns:Uncomplica daisy opioid dependence (CMS/HCC) (HCC) Place 1 Film under the tongue 2 times daily. 15 Film 11:06 AM EST 11/16/20 25 025 Discontinued(R eorder (will not trigger notification to Pharmacy)) Active Problems Problem Noted Date Diagnosed Date Homeless 06/01/2025 Severe episode of recurrent major depressive disorder, without psychotic features (CMS/HCC) 02/01/2025 SWAPNIL (generalized anxiety disorder) 02/01/2025 PTSD (post-traumatic stress disorder) 02/01/2025 Opioid use disorder 02/01/2025 Cannabis use disorder 02/01/2025 Encounters * This document contains information received from the source organization and may not represent a complete record from that organization. Date Type Department Care Team Description 11/23/2025 10:45 AM EST Clinical Support [facility] [address] [place] [phone] Sylwia Dior RN Uncomplicated opioid dependence (CMS/HCC) (HCC) (Primary Dx); Tobacco use disorder; Cocaine use 11/23/2025 Orders Only GENERIC EXTERNAL DATA DEPARTMENT Provider, Generic External Data 11/23/[address] [address] Ree Richardson RN hep c tx 11/23/2025 Travel 11/17/[address] [address] Sylwia Dior RN Uncomplicated opioid dependence (CMS/HCC) (HCC) 11/16/2025 11:15 AM EST Office Visit [address] [address] Maximino Garcia MD Uncomplicated opioid dependence (CMS/HCC) ([facility]) (Primary Dx); Tobacco use disorder; Cocaine use 11/16/2025 10:30 AM EST Office Visit [address] [address] Ree Richardson RN Uncomplicated opioid dependence (CMS/HCC) (HCC) 11/16/2025 Orders Only [address] [address] Ree Richardson RN Acute 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 11/16/[address] [address] Ree Richardson RN 11/16/[address] [address] Ree Richardson RN 11/16/2025 Travel from Last 3 Months Immunizations Immunization Administration Dates Next Due Hep A, Adult 09/17/2025 Influenza injectable quadrivalent preservative f ree 11/19/2023 Influenza, seasonal, injectable, preservative fr ee 01/19/2025 Pfizer Covid-19 Vaccine 12+ 01/19/2025 Social History Tobacco Use Types Packs/Day Years Used Date Smoking Tobacco: Every Day Cigarettes Smokeless Tobacco: Never Tobacco Cessation:Ready to Q uit: Not Asked; Counseling Given: Not Answered Depression Answer Date Recorded Patient Health Questionnaire-9 Score 21 11/16/2025 Patient Health Questionnaire-9 Score 21 11/16/2025 Last PHQ-9: Questionnaire Data Not on file 1 01/17/2025 Housing Stability Answer Date Recorded What is your housing situation today? I do not have housing (Staying with others, in a hotel, in a assisted, living outside on the street, on a [...] Orientation Straight 01/12/2025 9: 39 AM EST Last Filed Vital Signs Vital Sign Reading Time Taken Comments Blood Pressure 130/76 11/16/2025 12:00 PM EST Pulse 108 11/16/2025 12:00 PM EST Temperature 36.3 C (97.3 F) 11/16/2025 12:00 PM EST Respiratory Rate 18 11/16/2025 12:00 PM EST Oxygen Saturation 99% 02/09/2025 9:40 AM EDT Inhaled Oxygen Concentration - - Weight 70.3 kg (155 lb) 11/16/2025 12:00 PM EST Height - - Body Mass Index - - Plan of Treatment Upcoming Encounters Date Type Department Care Team (Late st Contact Info) Description 11/30/2025 11:15 AM EST Clinical Support [facility] [address] [place] [phone] Sylwia Dior, RN Health Maintenance Due Date Last Done Comments HIV Screening 1996 Lipid Panel 1996 SDOH Screening 1996 Disability Screening 1996 Family Planning (PISQ) 2011 HPV Vaccines (1 - Male 3-dos e series) 2011 DTaP/Tdap/Td Vaccines (1 - Tdap) 2015 Hepatitis B Vaccines (1 of 3 - 19+ 3-dose series) 2015 Pneumococcal Vaccine: Pediatrics (0 to 5 Years) and At-Risk Patients (6 to 49) Years (1 of 2 - PCV) 2015 COVID-19 Vaccine (3 - 2024-2 6 season) 2025 01/19/2025, 11/19/2023 Influenza Vaccine (#1) 2025 , 11/19/2023 Alcohol/Substance Use Screening 02/16/2026 02/16/2025 Hepatitis A Vaccines (2 of 2 - Risk 2-dose series) 03/18/2026 09/17/2025 Depression Monitoring 05/17/2026 11/16/2025 , 11/16/2025 Tobacco Screening 06/01/2026 06/01/2025 Zoster Vaccines (1 of 2) 2046 RSV Patients and Patients Aged 60 years or older (1 - 1-dose 75+ series) 2071 HIB Vaccines Aged Out No longer eligi ble based on patient's age to complete this topic IPV Vaccines Aged Out No longer eligi ble based on patient's age to complete this topic Meningococcal B Vaccine Aged Out No l onger eligible based on patient's age to complete this topic Meningococcal Vaccine Aged Out No guy fortunato eligible based on patient's age to complete this topic RSV under 20 months Aged Out No longe r eligible based on patient's age to complete this topic Rotavirus Vaccines Aged Out No longer eligible based on patient's age to complete this topic Procedures Procedure Name Priority Date/Time Associated Diagnosis Comments C-REACTIVE PROTEIN Routine 11/23/2025 4: 40 PM EST COMPREHENSIVE METABOLIC PANEL Routine 11/23/2025 4:40 PM EST SED RATE BY MODIFIED WESTERGREN Routine 11/23/2025 4:40 PM EST POCT CRISTIANA-14 URINE DRUG SCREEN Routine 11/23/2025 12:34 PM EST Uncomplicated opioid dependence (CMS/HCC) (HCC) POCT CRISTIANA-14 URINE DRUG SCREEN Routine 11/16/2025 1:11 PM EST Uncomplicated opioid dependence (CMS/HCC) (HCC) from Last 3 Months Results * Sed Rate by Modified Westergren (11/23/2025 4:40 PM EST) Erythrocyte Sedimentation Rate 5 1 - 15 MM/HR [facility] Comment:Patients with polycy themia and many hemoglobin abnormalitiesmay have depressed sed rates whereas patients with anemiamay have elevated sed rates. 11/23/2025 4:40 PM EST 11/23/2025 4:43 PM EST [facility] - 11/23/2025 4:51 PM EST uto to collect x3 Generic External Data Provider LAB BLOOD ORDERAB LES Final Result Performing Organization Address [facility] Co de Phone Number [facility] [address] [place] [phone] * (ABNORMAL) C-reactive Protein (11/23/2025 4:40 PM EST) [facility] C Reactive Protein 0.83(H) < or = 0.50 mg/dL [facility] 11/23/2025 4:40 PM EST 11/23/2025 4:43 PM EST [facility] - 11/23/2025 5:01 PM EST uto to collect x3 Generic External Data Provider LAB BLOOD ORDERAB LES Final Result Performing Organization Address [facility] de Phone Number [facility] [address] [place] [phone] * (ABNORMAL) Comprehensive Metabolic Panel (11/23/2025 4:40 PM EST) [facility] Sodium 140 135 - 145 mmol/L [facility] Potassium 4.0 3.3 - 5.1 mmol/L [facility] Comment:Mild Hemolysis.Inter pret result with caution Chloride 100 96 - 108 mmol/L [facility] Carbon Dioxide 27 22 - 29 mmol/L [facility] Anion Gap 17 12 - 20 [facility] Urea Nitrogen (BUN) 14 9 - 16 mg/dL [facility] Creatinine, Serum 0.80 0.5 - 1.4 mg/dL [facility] Creatinine Clr Calc Pharmacy 122.3 [facility] Comment:eGFR (calculated fro m the MDRD study equation) and eCrCl(calculated from the Cockcroft-Gault equation) are based ondifferent parameters and may not yield comparable results.If eCrCl result is absurd, please check patient'sheight/weight. Estimated Glomerular Filt Rate >60 [facility] Comment:Chronic Kidney Disea se: Estimated GFR < 60 mL/min/1.78s6Icghnf Kidney Disease: Estimated GFR < 15 mL/min/1.73m2 Glucose 77 60 - 115 mg/dL [facility] Calcium 9.8 8.4 - 10.2 mg/dL [facility] Bilirubin, Total 1.4(H) 0.0 - 1.0 mg/dL [facility] Aspartate Amino Transferase 129(H) 5 - 37 U/L [facility] Comment:Mild Hemolysis.Inter pret result with caution Alanine Aminotransferase 87(H) 0 - 40 U/L [facility] Total Protein 8.4(H) 6.5 - 8.0 g/dL [facility] Comment:Mild Hemolysis.Inter pret result with caution Albumin Level 5.1(H) 3.5 - 5.0 g/dL [facility] Alkaline Phosphatase 82 39 - 117 U/L [facility] 11/23/2025 4:40 PM EST 11/23/2025 4:43 PM EST Narrative [facility] - 11/23/2025 5:01 PM EST uto to collect x3 us Generic External Data Provider LAB BLOOD ORDERAB LES Final Result [facility] [address] [place] [address] [phone] * (ABNORMAL) POCT CRISTIANA-14 Urine Drug Screen (11/23/2025 12:34 PM EST) Only the most recent of2 resultswithin the time period is included. Amphetamine Screen, Urine Negative Negative Barbiturate Screen, [...] OF CARE TEST ENTER/EDIT ORDERABLES Final Result from Last 3 Months Insurance HS [facility] C3
[2025-11-23 19:00] VITALS: BP 112/66; PULSE 98; RESP 18; TEMP 36.8; O2SAT 96
[2025-11-23 19:37] VITALS: BP 112/66; PULSE 98; RESP 18; TEMP 36.8; O2SAT 96
== END 2025-11-23 19:37 | disposition left against medical advice (07) ==
PROVIDERS: Physician Assistant; Emergency Provider Emergency Medicine
DX: L03.115 Cellulitis of right lower limb (principal); R60.0 Localized edema; Z53.29 Procedure and treatment not carried out because of patient's decision for other reasons
CPT/HCPCS: 36415; 73590; 73630; 80053; 83605; 85025; 85652; 86140; 87040; 93971; 96365; 96367; 96375; 99284; J1200; J2543; J3374

== ENCOUNTER → 2025-11-23 15:11 | Outpatient (BNV) | payer OTHER, SELFPAY | PROVIDERS: Visit Provider Radiology Diagnostic Radiology | DX: R22.41 Localized swelling, mass and lump, right lower limb (principal); R21 Rash and other nonspecific skin eruption | CPT/HCPCS: 73590; 73630; 93971 ==

== ENCOUNTER 2025-11-24 22:32 | Inpatient (IN) | payer MEDICAID, SELFPAY ==
--- OUTSIDE RECORDS SUMMARY | 2025-11-23 10:45 | XMS_ITS | Encounter Summary ---
Author Organization [employer] [facility] Address [address] [place] [address] Care Team Providers Care Garment Turner Name Role Phone Unavailable Primary Care Provider Unavailabl e Reason for Visit * Reason Comments OBAT F/U Encounter Details Date Type Department Care Team (Latest Contact Info) Description 11/23/2025 10:45 AM EST Clinical Support [facility] [address] [place] [address] Sylwia Dior RN Uncomplicated opioid dependence (CMS/HCC) [...] with others, in a hotel, in a prison, living outside on the street, on a [...] opioid use disorder. He was released from snf yesterday. He is not on parole or [...] current suicidal ideation. He knows Sukhi Ramos leadership coach and Natasha Alvarado team therapist. He does not drink alcohol. He smokes 3 to 4 cigarettes a day. He also smokes marijuana. For the per gasfitter. He cannot read or write. History of untreated Hep C. As above. Safe use reviewed. Given narcan & FEN test strips. Informed that he will develop WD if he suddenly stops Suboxone. He met with Sukhi leadership coach and Natasha Alvarado team therapist. Ree [...] for this visit: Uncomplicated opioid dependence (CMS/HCC) ([facility]) - RPR (Monitor) with Reflex to Titer; [...] ambulation, walking with a limp. He showed program writer and MYRON Tomas who assisted with interpretation his foot and ankle. Right ankle was swollen, area on top of left foot and bottom of the top of left ankle was hardened to touch. He said he had injected in two areas on his foot area. Director Of Sales And Marketing noted blackened left middle toenail bed. Pt stated it became blackened after he injected into his foot. Director Of Sales And Marketing strongly encouraged him to go to the [facility] to be seen to avoid any further damageor injury to the area and risks of refusing assessment and treatment. He said he would but right now he had to go [place] [facility] [place] his girlfriend had an appt. He was strongly encouraged to be seen in the[place] at [facility]. He agreed to f/u. Plan: Buprenorphine-naloxone dosing [...] Description 11/30/2025 11:15 AM EST Clinical Support [facility] [address] [place] [address] Sylwia Dior RN documented as of this [...]
[2025-11-24 22:35] VITALS: BP 138/86; PULSE 130; O2SAT 96; BMI 25.1
[2025-11-24 22:54] LABS: Hematocrit 37.1 % (42.0-52.0); Hemoglobin 12.3 g/dl (14.0-18.0); Imm Gran Abs Auto 0.01 X10*3/uL (0.00-0.03); Imm Gran Pct Auto 0.2 % (0.0-0.4); Lymphocytes Absolute Auto 1.0 X10*3/uL (1.2-4.9); MANUAL DIFF FLAG NO; Mean Corpuscular HGB Conc 33.2 g/dl (31.0-36.0); Mean Corpuscular Hemoglobin 28.3 pg (27.0-33.0); Mean Corpuscular Volume 85.3 fL (80.0-98.0); NRBC Abs Auto 0.000 X10*3/uL (0.0-0.012); NRBC Pct Auto 0.0 /100WBC (0.0-0.2); Platelet Count 147 X10*3/uL (160-400); Red Blood Count 4.35 X10*6/uL (4.60-5.80); White Blood Count 6.2 X10*3/uL (4.8-10.8)
[2025-11-24 22:59] VITALS: RESP 16
[2025-11-24 23:09] LABS: Alanine Aminotransferase 61 U/L (0-40); Albumin Level 4.3 g/dL (3.5-5.0); Alkaline Phosphatase 62 U/L (39-117); Anion Gap 12 (12-20); Aspartate Amino Transferase 72 U/L (5-37); Blood Urea Nitrogen 10 mg/dL (9-16); Calcium 8.7 mg/dL (8.4-10.2); Carbon Dioxide 28 mmol/L (22-29); Chloride 105 mmol/L (96-108); Creatinine Clr Calc Pharmacy 144.2; Estimated Glomerular Filt Rate > 60; Potassium 3.2 mmol/L (3.3-5.1); Sodium 142 mmol/L (135-145); Total Protein 6.9 g/dL (6.5-8.0)
--- NOTE | 2025-11-24 23:09 | ED_ITS ---
HPI - General Adult General Chief complaint: Skin/Abscess/Foreign Body Stated complaint: R foot pain redness & swelling @ injection site Time Seen by Provider: 11/24/25 22:47 Source: patient Limitations: no limitations and language barrier History of Present Illness ED Provider: Nayeli Lynn PA-C HPI narrative: 30-year-old male with a history of active IV drug abuse on Suboxone, housing and security, who presents with right ankle pain x2 days. Patient was seen in the emergency department yesterday, there was concerned for cellulitis, the patient left against medical advice. Patient returns to complete treatment. Related Data Previous Rx's ?Medication ?Instructions ?Recorded cephalexin 500 mg capsule 500 mg PO QID 7 days #28 cap s 11/23/25 doxycycline hyclate 100 mg capsule 100 mg PO BID 7 day s #14 caps 11/23/25 Allergies Allergy/AdvReac Type Severity Reaction Status Date / Time No Known Allergies Allergy Verified 11/24/25 22:53 Review of Systems 2 Review of Systems: Yes all other systems are reviewed and are negative Constitutional: Constitutional: Reports chills and Reports fever(s) Musculoskeletal: Musculoskeletal: Reports arthralgias, Reports joint swelling and Reports limited range of motion Integumentary/Breasts: Skin/Breast: Reports erythema PMFSH Past Medical History Attestation statement: The following information was validated with the patient. Medical History Intravenous drug abuse Social History Social History (Updated 11/23/25 @ 17:14 by Carri Martinez DO) Patient Tobacco Use Status: Tobacco use Unknown Substance Use Type: IV Drugs Advance Directives: No Advance Directives Information Provided: Yes Physical Exam ED Vital Signs: Vital Signs - 24 hr 11/24/25 22:59 Respiratory Rate 16 BMI result Body Mass Index 25.1 Const Other: Alert Orientation/consciousness: patient oriented x3 Resp Effort & Inspection: normal respiratory effort Cardio Other: Normal peripheral perfusion, edema noted about the right foot and ankle Skin Other: Warm general rash Neuro General: patient oriented x3, no focal motor deficits and CN's II-XI intact bilaterally Extrem Other: Very limited flexion and extension from the right ankle, there is erythema that spans lower montero across angle over the dorsum of the foot, you can see track trammell anteriorly over the ankle, Psych Other: Cooperative Medications Administered Discontinued Medications Generic Name Dose Route Start Last Admin Trade Name Freq PRN Reason Stop Dose Admin Ketorolac Tromethamine 15 mg 11/24/25 22:52 11/24/25 23:00 Ketorolac Tromethamine 15 Mg/Ml Vial IVPUSH 11/24/25 22:53 15 mg ONCE ONE Administration Morphine Sulfate 4 mg 11/24/25 22:52 11/24/25 22:59 Morphine Sulfate 4 Mg/Ml Cartridge IVPUSH 11/24/25 22:53 4 mg ONCE ONE Administration Protocol Medical Decision Making Medical Decision Making MDM Narrative: 30-year-old male with a history of active IV drug abuse on Suboxone, housing and security, who presents with right ankle pain x2 days. Patient was seen in the emergency department yesterday, there was concerned for cellulitis, the patient left against medical advice. Patient returns to complete treatment. Problem: IV drug abuse History: Per patient I have considered the following differential diagnoses: Cellulitis, purulent cellulitis, abscess, osteomyelitis, septic joint Plan: Patient is willing to stay for admission, screening labs in process including blood cultures and lactic, there was no growth on the 1st set of cultures from yesterday, the lactic was not elevated yesterday. We will be ordering vanco, and pain medications. The patient has some degree of range of motion of the ankle, I think this is just cellulitis at this time. He also did not have an effusion to tap yesterday. I do not see the point in repeating x- rays. On the x-ray of the foot, there was concern for loss of cortical white line of the tuft of the 5th digit, however there were no exterior skin changes in this region, I think this is an over-read, and not osteomyelitis We will place admission request. I have independently reviewed the following tests: Labs: No overall leukocytosis, left shift noted, mild hypokalemia at 3.2, no additional electrolyte abnormality, lactic 1.3, C-reactive protein minimally elevated at 0.96, ESR not elevated at 3, X-ray right tib-fib from 11/23: ECHNIQUE: AP and lateral views of the right tibia and fibula were obtained. FINDINGS: The bones and soft tissues are normal. No fracture. No osseous lesions. XR/XR tibia fibula RT 2V IMPRESSION: Unremarkable right tibia and fibula. X-ray right foot from 11/23: XR/XR foot RT min 3V IMPRESSION: There is loss of the cortical white line of the medial aspect of the tuft of the fifth digit. If there is skin changes in this region or ulceration, consider osteomyelitis. DVT study right lower extremity: US/US venous duplex LE RT IMPRESSION: No evidence of deep venous thrombosis involving the right lower extremity. Differential Diagnosis Differential Diagnoses: The differential diagnosis associated with the presentation includes See MDM Admission/Observation Consideration of admission/observation: Escalation of care including admission/observation considered Abdomen Consult Healthcare Provider Management of the patient was discussed with: Hospitalist and Inspector Hot Forgings Maybe ortho consult during admission Lab Data [facility] Lab Attestation statement: I reviewed the patient's lab results. 11/24/25 22:50 11/24/25 22:50 Labs: Lab Results 11/24/25 11/24/25 11/24/25 Range/Units 22:50 22:53 22:59 WBC 6.2 (4.8-10.8) X10*3/uL RBC 4.35 L (4.60-5.80) X10*6/uL Hgb 12.3 L (14.0-18.0) g/dl Hct 37.1 L (42.0-52.0) % MCV 85.3 (80.0-98.0) fL MCH 28.3 (27.0-33.0) pg MCHC 33.2 (31.0-36.0) g/dl RDW 13.0 (11.0-16.0) % Plt Count 147 L (160-400) X10*3/uL MPV 11.7 (9.4-12.4) fL Immature Gran % (Auto) 0.2 (0.0-0.4) % Neut % (Auto) 74.8 H (45-73) % Lymph % (Auto) 16.1 L (20-40) % Franklin % (Auto) 8.2 (2-11) % Eos % (Auto) 0.2 (0-4) % Baso % (Auto) 0.5 (0-2) % Lymph # (Auto) 1.0 L (1.2-4.9) X10*3/uL Franklin # (Auto) 0.5 (0.1-1.2) X10*3/uL Eos # (Auto) 0.0 (0.0-0.4) X10*3/uL Baso # (Auto) 0.0 (0.0-0.2) X10*3/uL Abs Immat Gran (auto) 0.01 (0.00-0.03) X10*3/uL Absolute Neuts (auto) 4.6 (2.0-8.3) x10*3/uL Absolute Nucleated RBC 0.000 (0.0-0.012) X10*3/uL Nucleated RBC % (auto) 0.0 (0.0-0.2) /100WBC ESR 3 (1-15) MM/HR Sodium 142 (135-145) mmol/L Potassium 3.2 L (3.3-5.1) mmol/L Chloride 105 (96-108) mmol/L Carbon Dioxide 28 (22-29) mmol/L Anion Gap 12 (12-20) BUN 10 (9-16) mg/dL Creatinine 0.78 (0.5-1.4) mg/dL Estim Creat Clear Calc 144.2 Estimated GFR > 60 Random Glucose 133 H (60-115) mg/dL Lactic Acid 1.3 (0.5-2.0) mmol/L Calcium 8.7 D (8.4-10.2) mg/dL Total Bilirubin 1.0 (0.0-1.0) mg/dL AST 72 H (5-37) U/L ALT 61 H (0-40) U/L Alkaline Phosphatase 62 (39-117) U/L C-Reactive Protein 0.96 H (< or = 0.50) mg/dL Total Protein 6.9 (6.5-8.0) g/dL Albumin 4.3 (3.5-5.0) g/dL Salicylates < 5.0 L (15-30) mg/dL Acetaminophen < 3 (<30) mcg/mL Radiology Impression Discussion of test interpretation with radiology: I have reviewed the radiologist's reading. Discharge Plan Discharge Patient Disposition: Admitted As Inpatient Print Language: Samoan
[2025-11-24 23:15] LABS: Acetaminophen LAB < 3 mcg/mL (<30); Salicylate < 5.0 mg/dL (15-30)
--- OUTSIDE RECORDS SUMMARY | 2025-11-24 23:42 | XMS_ITS | Clinical Summary ---
Author Organization [employer] Address [address] [place] [address] Care Team Providers Care Tipping Machine Operator Automatic Name Role Phone Unavailable Primary Care Provider [...] the tongue 2 times daily. 14 Film 5 10:55 AM EST 11/22/20 25 025 Active buprenorphine -naloxone (Suboxone) [...] the tongue 2 times daily. 15 Film 5 11:06 AM EST 11/16/20 25 025 Discontinued(R [...] organization. Date Type Department Care Team Description 11/24/2025 Orders Only GENERIC EXTERNAL DATA DEPARTMENT Provider, Generic External Data 11/23/2025 10:45 AM EST Clinical Support [address] [address] Sylwia Dior RN Uncomplicated opioid dependence (CMS/HCC) (HCC) (Primary Dx); Tobacco use disorder; Cocaine use 11/23/2025 Orders Only GENERIC EXTERNAL DATA DEPARTMENT Provider, Generic External Data 11/23/[address] [address] Ree Richardson RN hep c tx 11/23/2025 Travel 11/17/[address] [address] Sylwia Dior RN Uncomplicated opioid dependence (CMS/HCC) (HCC) 11/16/2025 11:15 AM EST Office Visit [address] [address] Maximino Garcia MD Uncomplicated opioid dependence (CMS/HCC) (HCC) (Primary Dx); Tobacco use disorder; Cocaine use 11/16/2025 10:30 AM EST Office Visit [address] [address] Ree Richardson RN Uncomplicated opioid dependence (CMS/HCC) (HCC) 11/16/2025 Orders Only [address] [address] Ree Richardson RN Acute 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 11/16/[address] [address] Ree Richardson RN 11/16/[address] [address] Ree Richardson RN 11/16/2025 Travel from Last [...] with others, in a hotel, in a skilled nursing, living outside on the street, on a [...] Description 11/30/2025 11:15 AM EST Clinical Support [address] [address] Sylwia Dior RN Health Maintenance Due Date Last Done [...] of 2 - PCV) 2015 COVID-19 Vaccine ( - 2024-2 6 season) 2025 01/19/2025, 11/19/2023 [...] Associated Diagnosis Comments SED RATE BY MODIFIED ANTONIOERGREN Routine 11/24/2025 10:59 PM EST LACTIC ACID Routine 11/24/2025 10:53 PM EST ACETAMINOPHEN LEVEL Routine 11/24/2025 1 0:50 PM EST SALICYLATE Routine 11/24/2025 10:50 PM EST C-REACTIVE PROTEIN Routine 11/24/2025 10 :50 PM EST COMPREHENSIVE METABOLIC PANEL Routine 11/24/2025 10:50 PM EST CBC WITH AUTO DIFFERENTIAL Routine 11/24/2025 10:50 PM EST LACTIC ACID Routine 11/23/2025 5:15 PM EST BLOOD CULTURE (SECOND) Routine 5:15 PM EST C-REACTIVE PROTEIN Routine 11/23/2025 4: 40 PM EST COMPREHENSIVE METABOLIC PANEL Routine 11/23/2025 4:40 PM EST SED RATE BY MODIFIED WESTERGREN Routine 11/23/2025 4:40 PM EST BLOOD CULTURE (FIRST) Routine 11/23/2025 4:40 PM EST POCT CRISTIANA-14 URINE DRUG SCREEN Routine 11/23/2025 12:34 PM EST Uncomplicated opioid dependence (CMS/HCC) (HCC) POCT CRISTIANA-14 URINE DRUG SCREEN Routine 11/16/2025 1:11 PM EST Uncomplicated opioid dependence (CMS/HCC) (HCC) from Last 3 Months Results * Sed Rate by Modified Westergren (11/24/2025 10:59 PM EST) Only the most recent of2 resultswithin the time period is included. Erythrocyte Sedimentation Rate 3 1 - 15 MM/HR [facility] Comment:Patients with polycy themia and many hemoglobin abnormalitiesmay have depressed sed rates whereas patients with anemiamay have elevated sed rates. 11/24/2025 10:5 9 PM EST 11/24/2025 11:02 PM EST us Generic External Data Provider LAB BLOOD ORDERAB LES Final Result [facility] [address] [place] [address] [phone] * Lactic Acid (11/24/2025 10:53 PM EST) Only the most recent of2 resultswithin the time period is included. Lactic Acid 1.3 0.5 - 2.0 mmol/L [facility] 11/24/2025 10:5 3 PM EST 11/24/2025 10:56 PM EST us Generic External Data Provider LAB BLOOD ORDERAB LES Final Result [facility] [address] [place] [phone] * (ABNORMAL) CBC auto differential (11/24/2025 10:50 PM EST) White Blood Count 6.2 4.8 - 10.8 X10*3/uL [facility] Red Blood Count 4.35(L) 4.60 - 5.80 X10*6/uL [facility] Hemoglobin 12.3(L) 14.0 - 18.0 g/dl [facility] Hematocrit 37.1(L) 42.0 - 52.0 % [facility] Mean Corpuscular Volume 85.3 80.0 - 98.0 fL [facility] Mean Corpuscular Hemoglobin 28.3 27.0 - 33.0 pg [facility] Mean Corpuscular HGB Conc 33.2 31.0 - 36.0 g/dl [facility] Red Cell Distribution Width 13.0 11.0 - 16.0 % [facility] Platelet Count 147(L) 160 - 400 X10*3/uL [facility] Mean Platelet Volume 11.7 9.4 - 12.4 fL [facility] Neutrophils Percent Auto 74.8(H) 45 - 73 % [facility] Imm Gran Pct Auto 0.2 0.0 - 0.4 % [facility] Lymphocytes Percent Auto 16.1(L) 20 - 40 % [facility] Monocytes Percent Auto 8.2 2 - 11 % [facility] Eosinophils Percent Auto 0.2 0 - 4 % [facility] Basophils Percent Auto 0.5 0 - 2 % [facility] NRBC Pct Auto 0.0 0.0 - 0.2 /100WBC [facility] Neutrophils Absolute Auto 4.6 2.0 - 8.3 x10*3/uL [facility] Imm Gran Abs Auto 0.01 0.00 - 0.03 X10*3/uL [facility] Lymphocytes Absolute Auto 1.0(L) 1.2 - 4.9 X10*3/uL [facility] Monocytes Absolute Auto 0.5 0.1 - 1.2 X10*3/uL [facility] Eosinophils Absolute Auto 0.0 0.0 - 0.4 X10*3/uL [facility] Basophils Absolute Auto 0.0 0.0 - 0.2 X10*3/uL [facility] NRBC Abs Auto 0.000 0.0 - 0.012 X10*3/uL [facility] 11/24/2025 10:5 0 PM EST 11/24/2025 10:52 PM EST Generic External Data Provider LAB BLOOD ORDERAB LES Final Result Performing Organization Address [facility]/ZIP Co de Phone Number [facility] [address] [place] [phone] * (ABNORMAL) C-reactive Protein (11/24/2025 10:50 PM EST) Only the most recent of2 resultswithin the time period is included. C Reactive Protein 0.96(H) < or = 0.50 mg/dL [facility] 11/24/2025 10:5 0 PM EST 11/24/2025 10:52 PM EST Generic External Data Provider LAB BLOOD ORDERAB LES Final Result Performing Organization Address City/[facility]/ZIP Co de Phone Number [facility] [address] [place] [phone] * Acetaminophen level (11/24/2025 10:50 PM EST) Acetaminophen LAB <3 <30 mcg/mL [facility] 11/24/2025 10:5 0 PM EST 11/24/2025 10:52 PM EST us Generic External Data Provider LAB BLOOD ORDERAB LES Final Result Performing Organization Address City/[facility]/ZIP Co de Phone Number [facility] [address] [place] [phone] * (ABNORMAL) Salicylate (11/24/2025 10:50 PM EST) Salicylate <5.0(L) 15 - 30 mg/dL [facility] 11/24/2025 10:5 0 PM EST 11/24/2025 10:52 PM EST Generic External Data Provider LAB BLOOD ORDERAB LES Final Result Performing Organization Address [facility] Co de Phone Number [facility] [address] [place] [address] [phone] * (ABNORMAL) Comprehensive Metabolic Panel (11/24/2025 10:50 PM EST) Only the most recent of2 resultswithin the time period is included. Sodium 142 135 - 145 mmol/L [facility] Potassium 3.2(L) 3.3 - 5.1 mmol/L [facility] Chloride 105 96 - 108 mmol/L [facility] Carbon Dioxide 28 22 - 29 mmol/L [facility] Anion Gap 12 12 - 20 [facility] Urea Nitrogen (BUN) 10 9 - 16 mg/dL [facility] Creatinine, Serum 0.78 0.5 - 1.4 mg/dL [facility] Creatinine Clr Calc Pharmacy 144.2 [facility] Comment:eGFR (calculated fro m the MDRD study equation) and eCrCl(calculated from the Cockcroft-Gault equation) are based ondifferent parameters and may not yield comparable results.If eCrCl result is absurd, please check patient'sheight/weight. Estimated Glomerular Filt Rate >60 [facility] Comment:Chronic Kidney Disea se: Estimated GFR < 60 mL/min/[id number] Kidney Disease: Estimated GFR < 15 mL/min/1.73m2 Glucose 133(H) 60 - 115 mg/dL [facility] Calcium 8.7 8.4 - 10.2 mg/dL [facility] Bilirubin, Total 1.0 0.0 - 1.0 mg/dL [facility] Aspartate Amino Transferase 72(H) 5 - 37 U/L [facility] Alanine Aminotransferase 61(H) 0 - 40 U/L [facility] Total Protein 6.9 6.5 - 8.0 g/dL [facility] Albumin Level 4.3 3.5 - 5.0 g/dL [facility] Alkaline Phosphatase 62 39 - 117 U/L [facility] 11/24/2025 10:5 0 PM EST 11/24/2025 10:52 PM EST us Generic External Data Provider LAB BLOOD ORDERAB LES Final Result Performing Organization Address City/State/[facility] Co de Phone Number [facility] [address] [place] [phone] * (ABNORMAL) POCT CRISTIANA-14 Urine Drug [...] procedure / Unknown 11/23/2025 12:34 PM EST us Maximino Garcia MD POINT OF CARE TEST ENTER/EDIT ORDERABLES Final Result from Last 3 Months Insurance [employer] C3
--- OUTSIDE RECORDS SUMMARY | 2025-11-24 23:42 | XMS_ITS | Encounter Summary ---
Author Organization [employer] [facility] Address [address] [place] [address] Care Team Providers Care Medical Front Desk Coordinator Name Role Phone Unavailable Primary Care Provider Unavailabl e Reason for Visit * Reason Onset Date Comments Med Refill 11/17/2025 Encounter Details Date Type Department Care Team (Late Contact Info) Description 11/17/2025 Refill [facility] [address] [place] [address] Sylwia Dior RN Uncomplicated opioid dependence (CMS/HCC) ([facility]) Social History Tobacco Use Types Packs/Day Years [...] with others, in a hotel, in a nursing home, living outside on the street, on [...] Description 11/30/2025 11:15 AM EST Clinical Support [facility] [address] [place] [address] Sylwia Dior RN documented as of this encounter Visit Diagnoses Diagnosis Uncomplicated opioid dependence (CMS/HCC) (HCC) documented in this encounter Additional Health Concerns Assessment Noted Time PHQ-9 Depression Total Score: 21 025 1:19 PM EST documented as of this encounter
--- OUTSIDE RECORDS SUMMARY | 2025-11-24 23:42 | XMS_ITS | Encounter Summary ---
Author Organization [employer] [facility] Address [address] [place] [address] Care Team Providers Care Bottom Bleacher Name Role Phone Unavailable Primary Care Provider Unavailabl e Encounter Details Date Type Department Care Team (Late st Contact Info) Description 01/11/2025 Orders Only [facility] [address] [place] [phone] Ray Villegas MD [address] [place] [phone] Social History Tobacco Use Types Packs/Day Years [...] Description 11/30/2025 11:15 AM EST Clinical Support [facility] [address] [place] [phone] Sylwia Dior RN documented as of this encounter Visit Diagnoses Not on filedocumented in this encounter
--- OUTSIDE RECORDS SUMMARY | 2025-11-24 23:42 | XMS_ITS | Encounter Summary ---
Author Organization [employer] [facility] Address [address] [place] [address] [address] [place] [address] Care Team Providers Care Rope Tier Name Role Phone Unavailable Primary Care Provider Unavailabl e Reason for Visit * Reason Onset Date Comments hep c tx 11/23/2025 Encounter Details Date Type Department Care Team ([facility] st Contact Info) Description 11/23/2025 Telephone [facility] [address] [place] [address] Ree Richardson RN [address] [place] [address] hep c tx Social History Tobacco Use [...] with others, in a hotel, in a penitentiary, living outside on the street, on a [...] Description 11/30/2025 11:15 AM EST Clinical Support [facility] [address] [place] [phone] Sylwia Dior RN documented as of this encounter Visit Diagnoses Not on filedocumented in this encounter Additional Health Concerns Assessment Noted Time PHQ-9 Depression Total Score: 21 025 1:19 PM EST documented as of this encounter
--- OUTSIDE RECORDS SUMMARY | 2025-11-24 23:42 | XMS_ITS | Encounter Summary ---
Author Organization [employer] [facility] Address [address] [place] [address] Care Team Providers Care Binitrotoluene Operator Name Role Phone Unavailable Primary Care [...] with others, in a hotel, in a detention, living outside on the street, on a [...] Description 11/30/2025 11:15 AM EST Clinical Support [facility] [address] [place] [address] Sylwia Dior RN documented as of this encounter Visit Diagnoses Not on filedocumented in this encounter Additional Health Concerns Assessment Noted Time PHQ-9 Depression Total Score: 21 11/16/ 025 1:19 PM EST documented as of this encounter
--- OUTSIDE RECORDS SUMMARY | 2025-11-24 23:42 | XMS_ITS | Encounter Summary ---
Author Organization [employer] [facility] Address [address] [facility] 7[address] [place] [address] Care Team Providers Care Md Urologist Name Role Phone Unavailable Primary Care Provider [...] Description 11/30/2025 11:15 AM EST Clinical Support [facility] [address] [place] [address] Sylwia Dior RN Pending Results Name Type Priority Associated Diagnoses Date /Time Blood Culture (First) Microbiology Routine 11/23/2025 4:40 PM EST Blood Culture (Second) Microbiology Routine 11/23/2025 5:15 PM EST documented as of this encounter Procedures Procedure Name Priority Date/Time Associated Diagnosis Comments BLOOD CULTURE (SECOND) Routine 5:15 PM EST LACTIC ACID Routine 11/23/2025 5:15 PM EST BLOOD CULTURE (FIRST) Routine 11/23/2025 4:40 PM EST SED RATE BY MODIFIED WESTERGREN Routine 11/23/2025 4:40 PM EST C-REACTIVE PROTEIN Routine 11/23/2025 4: 40 PM EST COMPREHENSIVE METABOLIC PANEL Routine 11/23/2025 4:40 PM EST documented in this encounter Results * Lactic Acid (11/23/2025 5:15 PM EST) Lactic Acid 1.2 0.5 - 2.0 mmol/L [facility] 11/23/2025 5:15 PM EST 11/23/2025 5:17 PM EST [facility] - 11/23/2025 5:36 PM EST uto to collect x3 Generic External Data Provider LAB BLOOD ORDERAB LES Final Result [facility] [address] [place] [phone] * (ABNORMAL) C-reactive Protein (11/23/2025 4:40 PM EST) C Reactive Protein 0.83(H) < or = 0.50 mg/dL [facility] 11/23/2025 4:40 PM EST 11/23/2025 4:43 PM EST [facility] - 11/23/2025 5:01 PM EST uto to collect x3 us Generic External Data Provider LAB BLOOD ORDERAB LES Final Result [facility] [address] [place], [place] [phone] * (ABNORMAL) Comprehensive Metabolic Panel (11/23/2025 4:40 PM EST) Sodium 140 135 - 145 mmol/L [facility] Potassium 4.0 3.3 - 5.1 mmol/L [facility] Comment:Mild Hemolysis.Inter pret result with caution Chloride 100 96 - 108 mmol/L [facility] Carbon Dioxide 27 22 - 29 mmol/L [facility] Anion Gap 17 12 - 20 [facility] Urea Nitrogen (BUN) 14 9 - 16 mg/dL [facility] Creatinine, Serum 0.80 0.5 - 1.4 mg/dL [facility] Creatinine Clr Calc Pharmacy 122.3 [facility] Comment:eGFR (calculated fro m the MDRD study equation) and eCrCl(calculated from the Cockcroft-Gault equation) are based ondifferent parameters and may not yield comparable results.If eCrCl result is absurd, please check patient'sheight/weight. Estimated Glomerular Filt Rate >60 [facility] Comment:Chronic Kidney Disea se: Estimated GFR < 60 mL/min/[id number] Kidney Disease: Estimated GFR < 15 mL/min/1.73m2 Glucose 77 60 - 115 mg/dL [facility] Calcium 9.8 8.4 - 10.2 mg/dL [facility] Bilirubin, Total 1.4(H) 0.0 - 1.0 mg/dL [facility] Aspartate Amino Transferase 129(H) 5 - 37 U/L [facility] Comment:Mild Hemolysis.Inter pret result with caution Alanine Aminotransferase 87(H) 0 - 40 U/L [facility] Total Protein 8.4(H) 6.5 - 8.0 g/dL [facility] Comment:Mild Hemolysis.Inter pret result with caution Albumin Level 5.1(H) 3.5 - 5.0 g/dL [facility] Alkaline Phosphatase 82 39 - 117 U/L [facility] 11/23/2025 4:40 PM EST 11/23/2025 4:43 PM EST [facility] - 11/23/2025 5:01 PM EST uto to collect x3 us Generic External Data Provider LAB BLOOD ORDERAB LES Final Result Performing Organization Address [facility] Co de Phone Number [facility] [address] [place] [phone] * Sed Rate by Modified Albertoren (11/23/2025 4:40 PM EST) Erythrocyte Sedimentation Rate 5 1 - 15 MM/HR [facility] Comment:Patients with polycy themia and many hemoglobin abnormalitiesmay have depressed sed rates whereas patients with anemiamay have elevated sed rates. 11/23/2025 4:40 PM EST 11/23/2025 4:43 PM EST [facility] - 11/23/2025 4:51 PM EST uto to collect x3 us Generic External Data Provider LAB BLOOD ORDERAB LES Final Result Performing Organization Address [facility] Co de Phone Number [facility] [address] [place] [phone] documented in this encounter Visit Diagnoses Not on filedocumented in this encounter Additional Health Concerns Assessment Noted Time PHQ-9 Depression Total Score: 21 025 1:19 PM EST documented as of this encounter
--- OUTSIDE RECORDS SUMMARY | 2025-11-24 23:42 | XMS_ITS | Encounter Summary ---
Author Organization [facility] Address [address] [facility] 7t [place] [address] Care Team Providers Care Sourcing Associate Name Role Phone Unavailable Primary Care Provider Unavailabl e Encounter Details Date Type Department Care Team (Late st Contact Info) Description 11/24/2025 Orders Only GENERIC EXTERNAL DATA [...] with others, in a hotel, in a alf, living outside on the street, on a [...] Description 11/30/2025 11:15 AM EST Clinical Support [facility] [address] [place] [address] Sylwia Dior RN documented as of this encounter Procedures Procedure Name Priority Date/Time Associated Diagnosis Comments SED RATE BY MODIFIED WESTERGREN Routine 11/24/2025 10:59 PM EST LACTIC ACID Routine 11/24/2025 10:53 PM EST CBC WITH AUTO DIFFERENTIAL Routine 11/24/2025 10:50 PM EST C-REACTIVE PROTEIN Routine 11/24/2025 10 :50 PM EST ACETAMINOPHEN LEVEL Routine 11/24/2025 1 0:50 PM EST SALICYLATE Routine 11/24/2025 10:50 PM EST COMPREHENSIVE METABOLIC PANEL Routine 11/24/2025 10:50 PM EST documented in this encounter Results * Sed Rate by Modified Westergren (11/24/2025 10:59 PM EST) Erythrocyte Sedimentation Rate 3 1 - 15 MM/HR [facility] Comment:Patients with polycy themia and many hemoglobin abnormalitiesmay have depressed sed rates whereas patients with anemiamay have elevated sed rates. 11/24/2025 10:5 9 PM EST 11/24/2025 11:02 PM EST us Generic External Data Provider LAB BLOOD ORDERAB LES Final Result Performing Organization Address [facility]/ZIP Co de Phone Number [facility] [address] [place] [phone] Lactic Acid (11/24/2025 10:53 PM EST) Lactic Acid 1.3 0.5 - 2.0 mmol/L [facility] 11/24/2025 10:5 3 PM EST 11/24/2025 10:56 PM EST us Generic External Data Provider LAB BLOOD ORDERAB LES Final Result [facility] [address] [place] [phone] * Acetaminophen level (11/24/2025 10:50 PM EST) Acetaminophen LAB <3 <30 mcg/mL [facility] 11/24/2025 10:5 0 PM EST 11/24/2025 10:52 PM EST us Generic External Data Provider LAB BLOOD ORDERAB LES Final Result Performing Organization Address City/[facility]/ZIP Co de Phone Number [facility] [address] [place] [phone] * (ABNORMAL) Salicylate (11/24/2025 10:50 PM EST) Salicylate <5.0(L) 15 - 30 mg/dL [facility] 11/24/2025 10:5 0 PM EST 11/24/2025 10:52 PM EST us Generic External Data Provider LAB BLOOD ORDERAB LES Final Result Performing Organization Address [facility]/ZIP Co de Phone Number [facility] [address] [place] [phone] * (ABNORMAL) C-reactive Protein (11/24/2025 10:50 PM EST) C Reactive Protein 0.96(H) < or = 0.50 mg/dL [facility] 11/24/2025 10:5 0 PM EST 11/24/2025 10:52 PM EST us Generic External Data Provider LAB BLOOD ORDERAB LES Final Result Performing Organization Address [facility] Co de Phone Number [facility] [address] [place] [phone] * (ABNORMAL) Comprehensive Metabolic Panel (11/24/2025 10:50 PM EST) Sodium 142 135 - 145 mmol/L [facility] Potassium 3.2(L) 3.3 - 5.1 mmol/L [facility] Chloride 105 96 - 108 mmol/L [facility] Carbon Dioxide 28 22 - 29 mmol/L [facility] Anion Gap 12 12 - 20 [facility] Urea Nitrogen (BUN) 10 9 - 16 mg/dL [facility] Creatinine, Serum 0.78 0.5 - 1.4 mg/dL [facility] Creatinine Clr Calc Pharmacy 144.2 [facility] Comment:eGFR (calculated fro m the MDRD study equation) and eCrCl(calculated from the Cockcroft-Gault equation) are based ondifferent parameters and may not yield comparable results.If eCrCl result is absurd, please check patient'sheight/weight. Estimated Glomerular Filt Rate >60 [facility] Comment:Chronic Kidney Disea se: Estimated GFR < 60 mL/min/1.41w2Nluskn Kidney Disease: Estimated GFR < 15 mL/min/1.73m2 Glucose 133(H) 60 - 115 mg/dL [facility] Calcium 8.7 8.4 - 10.2 mg/dL [facility] Bilirubin, Total 1.0 0.0 - 1.0 mg/dL [facility] Aspartate Amino Transferase 72(H) 5 - 37 U/L [facility] Alanine Aminotransferase 61(H) 0 - 40 U/L [facility] Total Protein 6.9 6.5 - 8.0 g/dL [facility] Albumin Level 4.3 3.5 - 5.0 g/dL [facility] Alkaline Phosphatase 62 39 - 117 U/L [facility] 11/24/2025 10:5 0 PM EST 11/24/2025 10:52 PM EST us Generic External Data Provider LAB BLOOD ORDERAB LES Final Result [facility] [address] [place] [phone] * (ABNORMAL) CBC auto differential (11/24/2025 10:50 PM EST) White Blood Count 6.2 4.8 - 10.8 X10*3/uL [facility] Red Blood Count 4.35(L) 4.60 - 5.80 X10*6/uL [facility] Hemoglobin 12.3(L) 14.0 - 18.0 g/dl [facility] Hematocrit 37.1(L) 42.0 - 52.0 % [facility] Mean Corpuscular Volume 85.3 80.0 - 98.0 fL [facility] Mean Corpuscular Hemoglobin 28.3 27.0 - 33.0 pg [facility] Mean Corpuscular HGB Conc 33.2 31.0 - 36.0 g/dl [facility] Red Cell Distribution Width 13.0 11.0 - 16.0 % [facility] Platelet Count 147(L) 160 - 400 X10*3/uL [facility] Mean Platelet Volume 11.7 9.4 - 12.4 fL [facility] Neutrophils Percent Auto 74.8(H) 45 - 73 % [facility] Imm Gran Pct Auto 0.2 0.0 - 0.4 % [facility] Lymphocytes Percent Auto 16.1(L) 20 - 40 % [facility] Monocytes Percent Auto 8.2 2 - 11 % [facility] Eosinophils Percent Auto 0.2 0 - 4 % [facility] Basophils Percent Auto 0.5 0 - 2 % [facility] NRBC Pct Auto 0.0 0.0 - 0.2 /100WBC [facility] Neutrophils Absolute Auto 4.6 2.0 - 8.3 x10*3/uL [facility] Imm Gran Abs Auto 0.01 0.00 - 0.03 X10*3/uL [facility] Lymphocytes Absolute Auto 1.0(L) 1.2 - 4.9 X10*3/uL [facility] Monocytes Absolute Auto 0.5 0.1 - 1.2 X10*3/uL [facility] Eosinophils Absolute Auto 0.0 0.0 - 0.4 X10*3/uL [facility] Basophils Absolute Auto 0.0 0.0 - 0.2 X10*3/uL [facility] NRBC Abs Auto 0.000 0.0 - 0.012 X10*3/uL [facility] 11/24/2025 10:5 0 PM EST 11/24/2025 10:52 PM EST us Generic External Data Provider LAB BLOOD ORDERAB LES Final Result [facility] [address] [place] [phone] documented in this encounter Visit Diagnoses Not on filedocumented in this encounter Additional Health Concerns Assessment Noted Time PHQ-9 Depression Total Score: 21 1216/2 025 1:19 PM EST documented as of this encounter
--- OUTSIDE RECORDS SUMMARY | 2025-11-24 23:42 | XMS_ITS | Encounter Summary ---
Author Organization [employer] [facility] Address [address] [facility] [address]t [place] [address] Care Team Providers Care Client Services Assistant Name Role Phone Unavailable Primary Care Provider Unavailabl e Encounter Details Date Type Department Care Team (Late st Contact Info) Description 03/10/[address] [phone] Maximino Garcia MD [address] [place] [phone] Social History Tobacco Use Types Packs/Day Years [...] Description 11/30/2025 11:15 AM EST Clinical Support [address] [phone] Sylwia Dior RN documented as of this encounter Visit Diagnoses Not on filedocumented in this encounter Additional Health Concerns Assessment Noted Time PHQ-9 Depression Total Score: 21 025 11:24 AM EDT documented as of this encounter
[2025-11-24 23:55] VITALS: BP 108/62; PULSE 102; RESP 14; TEMP 37.3; O2SAT 96
[2025-11-25] VITALS (7 sets, daily range): BP systolic 109–146; BP diastolic 54–78; PULSE 61–101; RESP 14–18; TEMP 36.2–37.4; O2SAT 95–98; BMI 22.2
--- NOTE | 2025-11-25 00:41 | HO.NURTONUR ---
30-year-old male, full code, regular diet, NKA, with a history of active IV drug abuse on Suboxone, housing and security, who presents with right ankle pain x2 days. Patient was seen in the emergency department yesterday, there was concerned for cellulitis, the patient left against medical advice. Patient returned to complete treatment. Primarily swedish speaking, interpreter for the deaf needed. labs overall unremarkable, very low grade fever of 99.1, wbc not elevated, lactic 1.3 Plan: Patient is willing to stay for admission, screening labs in process including blood cultures and lactic, there was no growth on the 1st set of cultures from yesterday, the lactic was not elevated yesterday. The patient has some degree of range of motion of the ankle. Being admitted for cellulitis, possible ortho consult during admit Pt has 18g EMS line to the left forearm w/ vanco running @333.33 mL/hr
--- NOTE | 2025-11-25 01:15 | PC.NURSE ---
at this time pt being transported to med surg, pt currently has vanco running via 18g IV located on his left forearm, approximately 100mL remaining in bag, approximately 400mL infused
--- NOTE | 2025-11-25 01:31 | PM.IMHP ---
History of Present Illness Date of Service: 11/25/25 Attending physician on admission: Mora Heredia Chief Complaint: Right ankle pain Jenaro Smallwood is a 30 years old man with a past medical history significant for IVDU on Suboxone (restart using it recently as he was recently released from senior living) who presents to the emergency department complaining of worsening right ankle pain over the last 2 days. He does have associated redness and swelling. He is unable to bear weight and has been using a cane for ambulation. He did for the chills but denied fever. He also denied any headache, chest pain, shortness on breath, palpitations, abdominal pain, nausea, vomiting or diarrhea. He did not report any acute urinary symptoms. He denied alcohol abuse or illicit drug use. He does use IV heroin and cocaine; also smokes marijuana. He is currently homeless. He denied taking any home meds. He was evaluated in the ED yesterday and refused hospitalization. Subsequently, he was discharged home against medical advice. A course of cephalexin and doxycycline was prescribed but he did not fill out the prescription. Blood workup showed no leukocytosis but there is neutrophilia. There is no lactic acidosis. Hemoglobin is 13.3 and and platelets 147. Potassium is 3.2. There are no other electrolyte imbalances. Renal function is normal. Transaminases are elevated, AST 72 and ALT 61. Alk-phos and bilirubin are normal. CRP is 0.96. Right foot x-ray showed loss of the cortical white line of the medial aspect of the tuft of the 5th digit and if they are skin changes in the region or ulceration consider osteomyelitis. Right fibular tibial x-ray is unremarkable. Right lower extremity venous Doppler showed no DVT. ED tx: Morphine 4 mg IV, ketorolac 15 mg IV, vancomycin 1.5 g IV Review of Systems Review of Systems: All 12 systems were reviewed and normal except as noted in HPI. [facility] Medical History Intravenous drug abuse Social History (Updated 11/23/25 @ 17:14 by Carri Martinez DO) Patient Tobacco Use Status: Tobacco use Unknown Substance Use Type: IV Drugs Advance Directives: No Advance Directives Information Provided: Yes Nutrition Risks: No Nutritional Risk Meds Allergies Allergy/AdvReac Type Severity Reaction Status Date / Time No Known Allergies Allergy Verified 11/24/25 22:53 Active Medications: Current Medications Acetaminophen (Acetaminophen 325 Mg Tablet) 975 mg PO Q6H [facility] Calcium Carbonate (Calcium Carbonate 750 Mg Tab.Chew) 750 mg PO Q4H PRN PRN Reason: Heartburn Enoxaparin Sodium (Enoxaparin Sodium 40 Mg/0.4 Ml Syringe) 40 mg SUBCUT Q24H [facility] Hydromorphone HCl (Hydromorphone Hcl 1 Mg/Ml Syringe) 1 mg IVPUSH Q4H PRN; Protocol PRN Reason: Pain, Severe (Pain Scale 7-10) Lactated Ringer's (Lr) 1,000 mls @ 125 mls/hr IVCONT .Q8H [facility] Stop: 11/25/25 09:29 Piperacillin Sod/Tazobactam (Sod 3.375 gm/ Sodium Chloride) 50 mls @ 100 mls/hr IV Q6H [facility] Ibuprofen (Ibuprofen 400 Mg Tablet) 400 mg PO Q6H [facility] Stop: 11/26/25 07:31 Magnesium Hydroxide (Milk Of Magnesia 30 Ml Oral.Susp) 30 ml PO DAILY PRN PRN Reason: Constipation Melatonin (Melatonin 3 Mg Tablet) 6 mg PO BEDTIME PRN PRN Reason: Insomnia Ondansetron HCl (Ondansetron Hcl 4 Mg/2 Ml Vial) 4 mg IVPUSH Q8H PRN PRN Reason: Nausea and Vomiting Sodium Chloride (0.9 % Sodium Chloride Flush 3 Ml Syringe) 3 ml IVFLUSH QSHIFT [facility] Physical Exam Vital Signs and Narrative: Vital Signs: Last Vital Signs Temp 99.1 F 11/24/25 23:55 Pulse 102 H 11/24/25 23:55 Resp 14 11/24/25 23:55 BP 108/62 11/24/25 23:55 Pulse Ox 96 11/24/25 23:55 O2 Del Method Room Air 11/24/25 23:55 BMI result Body Mass Index 25.1 General: Alert, oriented, in no acute distress. Well nourished and cooperative. Afebrile. HEENT: Head normocephalic, atraumatic. PER, EOMI. Sclerae anicteric, conjunctiva clear. Oropharynx without erythema or exudate. Mucous membranes moist. Neck: Supple. Heart: RRR, no murmurs, rubs or gallops. Lungs: Clear to auscultation bilaterally. No wheezes, rales, or rhonchi. Normal respiratory effort. Abdomen: Soft, non tenderness, nondistended, normoactive bowel sounds. No hepatosplenomegaly, masses or masses. Extremities: Right ankle and foot: Edema, erythema, exquisite tenderness to palpation on in squamous warmth. Distal pulses are normal. Left lower extremity: No edema, erythema or tenderness. Musculoskeletal: Full range of motion. No joint swelling, deformity, or tenderness. Normal muscle tone and strength. Skin: Warm/Dry. No pallor. No jaundice. Neurologic: Alert & oriented x4. Moving all extremities spontaneously. Normal speech. Psychological: Normal mood and affect. Thought process coherent. Results Labs 11/24/25 22:50 11/24/25 22:50 Labs: Laboratory Results - last 24 hr 11/24/25 11/24/25 11/24/25 22:50 22:53 22:59 MCV 85.3 MCH 28.3 MCHC 33.2 RDW 13.0 Plt Count 147 L MPV 11.7 Immature Gran % (Auto) 0.2 Neut % (Auto) 74.8 H Lymph % (Auto) 16.1 L Rapides % (Auto) 8.2 Eos % (Auto) 0.2 Baso % (Auto) 0.5 Lymph # (Auto) 1.0 L [place] # (Auto) 0.5 Eos # (Auto) 0.0 Baso # (Auto) 0.0 Abs Immat Gran (auto) 0.01 Absolute Neuts (auto) 4.6 Absolute Nucleated RBC 0.000 Nucleated RBC % (auto) 0.0 ESR 3 Anion Gap 12 Estim Creat Clear Calc 144.2 Estimated GFR > 60 Random Glucose 133 H Lactic Acid 1.3 Calcium 8.7 D Total Bilirubin 1.0 AST 72 H ALT 61 H Alkaline Phosphatase 62 C-Reactive Protein 0.96 H Total Protein 6.9 Albumin 4.3 Salicylates < 5.0 L Acetaminophen < 3 Assessment and Plan (1) IV drug abuse: Status: Acute (2) Cellulitis of leg, right: Status: Acute (3) Hypokalemia: Status: Acute (4) Homeless: Status: Acute Plan Jenaro Smallwood is a 30 y/o man who presents with: Ankle/foot cellulitis, right. Rule out 5th digit osteomyelitis. Empiric IV antibiotic therapy with vancomycin and Zosyn. Pain control with Dilaudid, acetaminophen and ibuprofen. Elevate extremity. Apply ice if tolerated. Blood cultures obtained -will follow results. IVDU. Not currently using Suboxone. Check COWS. Addition medicine consult. Hypokalemia, likely due to p.o. intake. Replete as needed. Continue to monitor K level. Homeless. Social work consult. Code status: Full DVT prophylaxis: Lovenox Patient will need hospitalization for at least 2 midnights for cellulitis of the right ankle secondary to IVDU treatment with IV antibiotics. Quality Stroke Does the patient have a stroke diagnosis?: No VTE Prior VTE?: No VTE Risk Level:: Medical - moderate - high VTE Device Contraindication: Treatment Not Indicated VTE Drug Contraindication: N/A - Med Ordered
[2025-11-25] MEDS: Potassium Chloride Packet 20 MEQ PACKET 40 MEQ PO (02:22)
[2025-11-25] MEDS: Lactated Ringers 1,000 ML 125 ML IVCONT (02:24)
--- NOTE | 2025-11-25 02:41 | PC.NURSE ---
Patient to med/surg approx 0130. Patient with cane for ambulation, but is unable to bear weight on right foot, and seen hopping on left foot with cane to bathroom. Redness, swelling, poor range of motion. Patient then given walker for more stability. Low fall risk, will ring for help. Pain conrolled at this time. Patient verbalizes homelessness and regrets drug use and wants to be sober for his family and partner. On and off poor appetite per pt with 10 lb recent weight loss. All needs in reach. 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
--- NOTE | 2025-11-25 06:14 | PHA.PROG ---
Admission Date/Time: November 25, 2025 00:04 Indication: Skin Weight in k.085 kg Adjusted body weight in Kg: Bypro body weight in Kg: Obesity Dosing Indication % IBW: Serum Creatinine - Last 168 Hours 11/24/25 22:50 Creatinine 0.78 Estimated CrCl and GFR - Last 168 Hours 11/24/25 22:50 Estim Creat Clear Calc 144.2 Estimated GFR > 60 Vancomycin Loading Dose: 1500mg Current Vancomycin Dosing Regimen: 1250 q12h Vancomycin Monitoring using AUC goal of 400 - 600 range with trough as surrogate marker: 491 mg/L*hr Date and Time for next Vancomycin Level to be drawn 11/26/2025 @ 1000 Pharmacist Comments on Vancomycin Plan: Vancomycin dosing will take advantage of [employer] as a clinical decision support tool that uses Bayesian modeling to calculate individual patient's pharmacokinetic parameters and forecast the patient's drug concentration time course with the target goal AUC 24 range of 400 - 600 mg/L/hr.
[2025-11-25 08:27] LABS: MANUAL DIFF FLAG NO
[2025-11-25 08:42] LABS: Hematocrit 37.2 % (42.0-52.0); Hemoglobin 12.3 g/dl (14.0-18.0); Imm Gran Abs Auto 0.03 X10*3/uL (0.00-0.03); Imm Gran Pct Auto 0.5 % (0.0-0.4); Lymphocytes Absolute Auto 1.8 X10*3/uL (1.2-4.9); Mean Corpuscular HGB Conc 33.1 g/dl (31.0-36.0); Mean Corpuscular Hemoglobin 28.7 pg (27.0-33.0); Mean Corpuscular Volume 86.9 fL (80.0-98.0); NRBC Abs Auto 0.000 X10*3/uL (0.0-0.012); NRBC Pct Auto 0.0 /100WBC (0.0-0.2); Platelet Count 133 X10*3/uL (160-400); Red Blood Count 4.28 X10*6/uL (4.60-5.80); White Blood Count 6.3 X10*3/uL (4.8-10.8)
[2025-11-25 08:51] LABS: Anion Gap 11 (12-20); Blood Urea Nitrogen 9 mg/dL (9-16); Calcium 8.4 mg/dL (8.4-10.2); Carbon Dioxide 24 mmol/L (22-29); Chloride 109 mmol/L (96-108); Creatinine Clr Calc Pharmacy 180.0; Estimated Glomerular Filt Rate > 60; Potassium 4.2 mmol/L (3.3-5.1); Sodium 140 mmol/L (135-145)
--- NOTE | 2025-11-25 10:30 | MHC.RECOVRN ---
Jenaro is a 30-y/o [place] Islander-speaking male who presented to the ED for evaluation of right ankle pain x2 days and was admitted for treatment of cellulitis.? Met with pt in 377-1 after receiving an addiction consult for evaluation of OUD and recovery support. [facility] [place] speaking tin dipper Radha Tapia utilized for interview. Upon approach pt is calm, oriented, and receptive to conversation. Discussed substance use in detail. Pt stated that he was incarcerated for 5 months and was released 11/17/2025. Prior to his incarceration he was ?doing very bad? using 1 pack of heroin/fentanyl daily via the IV route was very skinny and looked ill . Pt states he mixes fentanyl with cocaine - cocaine use ?as much as fentanyl?.? Following his release and about a week ago pt had a recurrence of opiate+cocaine use IV. Precipitants of the recurrence ?I wanted to celebrate and republican?. Since then pt has continued to use daily ?but way less ~1-3 bundles?. Pt was initiated on Suboxone while incarcerated. Following his release on 11/17? he continued to take Suboxone prescribed by a provider at [facility] but stopped taking it and started using instead.? Pt stated that he injected on his R foot to avoid track trammell. Pt was educated that injecting as distally as possible is a good IVDU harm reduction practice. Pt was educated on other risk reduction strategies such as never using alone, never sharing needles, test-dosing supply, carrying naloxone, and using clean supplies.? Pt reports a tx history of 10+ detox admissions but does not recall names of facilities. He has a hx of 2 opioid overdoses requiring narcan resuscitation. He has a family history of MARANDA and states that both of his brothers on the same day due to a fentanyl overdose. Discussed treatment options going forward. Pt wishes to continue on MAT with Suboxone. He found it helpful in the past and does not wish to switch to methadone. Pt stated he is concerned of side effects from methadone such as losing his dentition and using concurrently. Pt verbalized awareness of risk for precipitated withdrawal with opiate use while on Suboxone - When I take suboxone I know that if I use it I will feel bad and get withdrawal symptoms . Pt is treatment-seeking and wants CSS referrals to be made on his behalf. This is partly due to lack of housing and partly due to fear of having another fentanyl/cocaine use recurrence. If he is not able to find a CSS bed he is open to list of shelters until a bed is found.? Discussed recovery coaching and pt accepted a disaster recovery specialist referral with the [facility].? Written/educational materials in [place] offered and reviewed with pt. Briefly discussed them however pt did not accept written materials stating he does not know how to read or write.? Encouraged pt to rest and stay at [facility] for treatment- (pt reported he had left AMA yesterday due to wanting to use).? Reassured that the ACS team will work on CSS placement if/when appropriate (medical clearance required), restart him on Suboxone when appropriate, refer him to recovery coaching, and continue to provide as needed, recovery support. Suboxone will be discussed with the provider and resumed when COWS scores and withdrawal feelings increase.?kids activities coach referral sent. Pt verbalizes understanding and denies questions/concerns.
--- NOTE | 2025-11-25 11:00 | PHA.MEDREC ---
Pharmacy Consult ? Medication Reconciliation Pharmacy has completed the medication reconciliation. Spoke to patient via sign language interpreter to confirm medicationn list. Per patient, the only active medication is suboxone 8 mg film bid, last took half a film yesterday morning.
--- NOTE | 2025-11-25 12:33 | MHC.RECOVRN ---
Addendum entered by Denise Watts RN 11/25/25 12:51: See recovery/mh assessment for full eval. Original Note: Pt is a 30-y/o Latvian-speaking male admitted for R ankle cellulitis. criminology teacher met w/pt following addiction consult for OUD support. child custody evaluator utilized for interview. Pt calm, alert, oriented, cooperative. Hx of IV fentanyl use prior to incarceration. During that period he reports heavy use 1 pack of heroin mixed with cocaine daily IV, with significant weight loss. [facility] in [place] pt was started on Suboxone. Following 5-month incarceration and release on 11/17/2025, pt continued Suboxone briefly through [facility]. Pt stopped Suboxone about a week ago and resumed IV fentanyl/cocaine use. States recurrence was r/t to wanting to celebrate and constitution party . Currently using daily but at lower amounts (1-2 bundles/day). Pt states he injects primary into foot to avoid visible track trammell. Harm reduction education provided: risks of injection, not using alone, test dosing, not sharing needles, use of clean supplies, naloxone use. Pt receptive and verbalized understanding. Pt reports hx of 10 prior detox admissions - does not recall names of facilities attended. Hx of x2 opioid overdoses requireing naloxone. Significant family hx of MARANDA: reports borth brothers the same day due to fentanyl overdose. Reviewed treatment options. Pt prefers Suboxone; reports it was helpful in the past. Expressed concerns about methadone such as long-term dependence and does not wish to try it. Pt demonstrated awarenes of relapse and overdose risk when off MOUD. Pt denies withdrawal symtpoms at this time. Pt is treatment seeking and requests CSS placement due to housing instability and fear of recurrence. Pt open to snf placement if CSS no available. Recovery coaching discussed and accepted. referral sent to [facility]. Written materials in scottish offered. Pt declined written materials - reports inability to read or write. Verbal education provided with what job titles mean. ACS team to assist with CSS referral if/when appropriate and pending medical clearance, restart Suboxone when appropriate, and continue with recovery support and harm reduction education.
--- NOTE | 2025-11-25 13:43 | MHC.CM.PN ---
CM MET WITH PT AT BEDSIDE. PT IS CURRENTLY HOMELESS. PT GETS SUBOXONE VIA [facility]. PARTS DEPARTMENT MANAGER PCP, DECLINES COMPLETING A HCP. + THRIVE ASSESSMENT. RESOURCE GUIDE, LONG TERM LIST AND HMG BROCHURE PROVIDED. DP: PT MAY WANT A LONG TERM AT DC VS RETURN TO THE STREET. MAY NEED A LYFT RIDE TO LONG TERM. CM WILL CONTINUE TO FOLLOW FOR ANY CHANGE TO DC PLAN/NEEDS.
--- NOTE | 2025-11-25 13:46 | PC.NURSE ---
MRI screening done with medical office secretary Annie
[2025-11-25] MEDS: 0.9 % Sodium Chloride Flush 3 ML SYRINGE IVFLUSH ×2 (17:46→23:31)
[2025-11-25 20:18] LABS: Appearance Urine Clear; Glucose Urine UA Negative (Negative); PH >= 9.0 (5.0-9.0); Specific Gravity - Urine 1.020 (1.005-1.025)
[2025-11-25 20:28] LABS: Cannabinoid Screen Urine POSITIVE (Not Detect)
[2025-11-26 02:41] VITALS: BP 124/77; PULSE 60; RESP 18; TEMP 36.5; O2SAT 97
--- NOTE | 2025-11-26 03:03 | PM.EVENT ---
Event Note Date of Service: 11/26/25 Event Note: 0300 Nursing notified that pt is complaining of pain in leg with cellulitis and now wants oxycodone. Pt was on subxone until a week ago. Was obtaining through clinic. Ordered oxycodone 5 mgs Q4H prn for moderate pain. Time Spent With Patient Time: Total time managing care of this patient today ____ minutes.
[2025-11-26] MEDS: oxyCODONE HCl Immed Release 5 MG TABLET PO ×2 (03:11→07:21)
[2025-11-26 06:46] LABS: Creatinine Clr Calc Pharmacy 161.2; Estimated Glomerular Filt Rate > 60
[2025-11-26 07:42] VITALS: BP 135/78; PULSE 75; RESP 16; TEMP 36.7; O2SAT 96
--- NOTE | 2025-11-26 08:59 | PC.NURSE ---
patient left ama, refused to sign paperwork or wait for MD or addiction med, IV adapter refused
--- NOTE | 2025-11-26 09:12 | P.DS_ITS ---
DS: Providers Provider Date of admission: 11/25/25 00:04 Date of discharge: 11/26/25 Primary care physician: [facility] Consults: 11/25/25 01:29 Addiction Medicine Provider Routine Consulting Provider: Addiction Covering Reason for consultation: IVDU: heroin and cocaine Has provider been notified: No 11/25/25 02:04 Consult to Wound Care Routine Consulting Provider: [facility] Wound Care Management Reason for consultation: cellulitis right lower extremity DS: Diagnosis Discharge Diagnosis (1) IV drug abuse: Status: Acute (2) Cellulitis of leg, right: Status: Acute (3) Hypokalemia: Status: Acute (4) Homeless: Status: Acute DS: Summary Hospital Course Hospital Course: 30-year-old unhoused man with active IV polysubstance use (heroin, fentanyl, cocaine; recently off Suboxone after incarceration), admitted for right ankle/foot cellulitis with concern for injection-related infection, initially treated with IV vancomycin and piperacillin-tazobactam, with clinical improvement of lower extremity exam, who subsequently developed symptoms concerning for substance withdrawal and?left the hospital abruptly against medical advice on 11/26/25 without signing AMA forms. Right Ankle / Foot Cellulitis (Injection-related) Presented with 2 days of worsening right ankle pain, erythema, swelling, and inability to bear weight. Initial imaging showed possible cortical irregularity of the 5th digit tuft but no overlying skin changes; tibia/fibula XR unremarkab le. Venous duplex negative for DVT. No leukocytosis; inflammatory markers minimally elevated. Treated with IV vancomycin and piperacillin-tazobactam with?marked improvement in erythema and pain by hospital day 2. On morning of departure, exam notable for resolution of erythema with residual swelling only.? Plan (Intended, not completed due to AMA): * Continue IV antibiotics with planned transition to oral therapy if improvement sustained * Monitor for signs of worsening infection or osteomyelitis * Consider MRI if focal bony pain or recurrent erythema developed * Blood cultures were pending at time of departure Polysubstance Use Disorder / Suspected Acute Withdrawal History of IV heroin, fentanyl, and cocaine use; patient reported recent substance use while incarcerated and had stopped Suboxone approximately one week prior. On day of departure, patient endorsed chills, nausea, abdominal discomfort, and loose stools with improving leg symptoms, raising concern for?acute opioid and/or stimulant withdrawal.? Plan (Intended, not completed due to AMA): * Initiate withdrawal symptom management and COWS monitoring * Addiction Medicine consultation * Resume medication-assisted treatment if patient agreeable Hypokalemia Mild hypokalemia on admission (K 3.2), likely related to poor intake.? Plan (Intended, not completed due to AMA): * Replete potassium as needed * Monitor electrolytes Transaminitis (Mild) AST 72, ALT 61 on admission with normal bilirubin and alkaline phosphatase; suspected substance-related or reactive.? Plan (Intended, not completed due to AMA): * Trend liver enzymes * Avoid hepatotoxic substances Homelessness / Psychosocial Instability Unhoused with limited follow-up reliability.?Plan (Intended, not completed due to AMA): * Social work consultation for housing and outpatient resources AMA Event After morning evaluation on 11/26/25, the patient?got out of bed, removed his IV catheter, and left the hospital without notifying staff, without signing AMA paperwork, and could not be located thereafter. No discharge medications were prescribed due to inability to funeral planning counselor the patient or ensure follow-up. Attempts to contact the patient after departure were unsuccessful. Discharge Against Medical Advice Patient was assessed and determined to have decision-making capacity. The patient verbalized understanding of these risks and was able to articulate their decision. Despite this, the patient elected to leave AMA. Alternatives and safe discharge planning were attempted, including prescriptions, follow-up arrangements, and instructions to return to the hospi nancy/ED at any time if symptoms worsen or if the patient changes their mind. The patient did not sign the AMA form. At the time of departure, the patient?s condition was fair. The patient was informed they are welcome to return for care at any time and has not been abandoned. Status at Discharge Cognitive/behavioral status at discharge: Alert and oriented to person place time and situation Functional status at discharge: independent ambulation Overall status at discharge: patient is not back to baseline Time Attestation Total time managing care of this patient today: 45 mintues. Discharge Coordination Time (in mins): 45 Quality: Safe Use of Opioids Does Pt have an Active Cancer Diagnosis on the Problem List?: No Quality: Stroke Does the patient have a stroke diagnosis?: No Physical Exam Exam: Exam: Vital Signs: Afebrile; hemodynamically stable on room air. General: Awake, alert, ambulatory, intermittently uncomfortable but in no acute distress. HEENT: Normocephalic, atraumatic. Mucous membranes moist. Cardiovascular: Regular rate and rhythm. No murmurs, rubs, or gallops. Peripheral pulses intact. Respiratory: Clear to auscultation bilaterally. No wheezes, rales, or rhonchi. Normal work of breathing. Abdomen: Soft, nondistended. Mild diffuse discomfort to palpation without guarding or rebound. Bowel sounds present. Extremities: Right ankle/foot with mild residual edema.?No erythema, warmth, or fluctuance.?No open wounds or drainage. Distal pulses intact. Left lower extremity without edema or erythema. Skin: Warm and dry. No rash. Neurologic: Alert and oriented ?3. Moves all extremities spontaneously. No focal deficits. Psychiatric: Irritable but cooperative during exam. Linear thought process. Left unit abruptly after encounter. Vital Signs: Vital Signs: Last Vital Signs Temp 98.0 F 11/26/25 07:42 Pulse 75 11/26/25 07:42 Resp 16 11/26/25 07:42 BP 135/78 11/26/25 07:42 Pulse Ox 96 11/26/25 07:42 O2 Del Method Room Air 11/26/25 07:42 BMI result Body Mass Index 22.2 DS: Data Data Completed and Pending Labs on day of discharge: Laboratory Results - last 24 hr 11/25/25 11/26/25 20:06 05:19 Creatinine 0.67 Estim Creat Clear Calc 161.2 Estimated GFR > 60 Urine Color Yellow Urine Appearance Clear Urine pH >= 9.0 Ur Specific [place] 1.020 Urine Protein Trace Urine Glucose (UA) Negative Urine Ketones Negative Urine Blood Negative Urine Nitrite Negative Ur Leukocyte Esterase Negative Urine RBC 0-2 Urine WBC 0-5 Ur Squamous Epith Cells 0-2 Urine Bacteria None Seen Hyaline Casts 0-2 Urine Opiates Screen POSITIVE H Ur Buprenorphine Scrn Positive H Ur Oxycodone Screen Not Detected Urine Methadone Screen Not Detected Urine Fentanyl Screen POSITIVE H Ur Barbiturates Screen Not Detected Ur Phencyclidine Scrn Not Detected Ur Amphetamines Screen Not Detected U Benzodiazepines Scrn Not Detected Urine Cocaine Screen POSITIVE H U Marijuana (THC) Screen POSITIVE H Preliminary micro results at discharge 11/24/25 22:59 Blood Culture - Preliminary Blood - Venous No growth after 24 hours. 11/24/25 22:53 Blood Culture - Preliminary Blood - Venous No growth after 24 hours. Discharge Plan Discharge Anticipated Discharge Date/Time: 11/26/25 09:15 Patient Disposition: Left Against Medical Advice Discharge Diagnosis: Acute right lower extremity nonpurulent cellulitis 2/2 IVDU Referrals: [facility] [Primary Care Provider, Medical] - 1 Week Discharge Medications: No Action buprenorphine-naloxone [Suboxone] 8-2 mg film 1 film sublingual BID Discharge Orders: Discharge Order (Routine); Ordered 11/26/25 Ordered By: Ángel Hernandez Diet: Advance to usual diet Activity on Discharge: As tolerated Print Language: Egyptian Care Plan Goals: Left against medical advice Health Concerns: Left against medical advice Plan of Treatment: Needs to follow up with PCP Needs to complete IV antibiotics Needs to follow up with addiction Medicine Needs MRI of the foot Assessment: Patient decided to leave hospital against medical advice. The patient was alert and oriented to person place time and situation, and able to make decisions against his better interest The patient unfortunately was on IV antibiotics, and unable to start a safe medication to prescribe in the outpatient setting Unfortunately, we do not know the patient's preferred pharmacy Unable to reach the patient
== END 2025-11-26 09:46 | disposition left against medical advice (07) | DRG 383 ==
LOC: HO.ED 23:48 → HO.EDOVER 11-25 00:09 → HO.S3 11-25 00:28
PROVIDERS: Physician Assistant Medical; Admitting Provider Internal Medicine; Emergency Provider Emergency Medicine; Visit Provider Hospitalist
DX: L03.115 Cellulitis of right lower limb (principal); M86.9 Osteomyelitis, unspecified; F11.20 Opioid dependence, uncomplicated; F19.939 Other psychoactive substance use, unspecified with withdrawal, unspecified; E87.6 Hypokalemia; Z59.02 Unsheltered homelessness
CPT/HCPCS: 36415; 80048; 80053; 80143; 80179; 80307; 81001; 82565; 83605; 85025; 85652; 86140; 87040; 87205; 99285; J1171; J1650; J1885; J2270; J2405; J2543; J3374; J7120; S9485

== ENCOUNTER → 2025-11-25 00:04 | Outpatient (BNV) | payer MEDICAID, SELFPAY | PROVIDERS: Admitting Provider Internal Medicine; Emergency Provider Emergency Medicine; Visit Provider Internal Medicine | DX: F19.10 Other psychoactive substance abuse, uncomplicated (principal); L03.115 Cellulitis of right lower limb; E87.6 Hypokalemia; Z53.29 Procedure and treatment not carried out because of patient's decision for other reasons; Z59.00 Homelessness unspecified | CPT/HCPCS: 99223; 99239; 99499 ==

== ENCOUNTER 2025-11-30 17:03 | Outpatient (REF) | payer MEDICAID, SELFPAY ==
--- OUTSIDE RECORDS SUMMARY | 2025-11-30 11:15 | XMS_ITS | Encounter Summary ---
Author Organization [employer] Address [address] [place] [address] Care Team Providers Care Violent Crimes Detective Name Role Phone Unavailable Primary Care Provider Unavailabl e Reason for Visit * Reason Comments OBAT F/U Encounter Details Date Type Department Care Team (Latest Contact Info) Description 11/30/2025 11:15 AM EST Clinical Support [facility] [address] [place] [address] Sylwia Dior RN Uncomplicated opioid dependence (CMS/HCC) (HCC) (Primary Dx) Social History Tobacco Use Types Packs/Day Years [...] with others, in a hotel, in a usp, living outside on the street, on a [...] Progress Notes * Sylwia Dior RN - 11/30/2025 11:15 AM EST Patient here today for OBAT visit. Patient on current buprenorphine-naloxone dose of 24/6 mg on a weekly schedule. Patient has been in the program for 2 weeks. Intake date: 11/16/25 LFTs pending HIV/Hep C screening pending Hepatitis A/B status: pending Smoking status ---. Last PCP appt: needs WEATHER STRIP INSTALLER appt Patient actively enrolled in behavioral health services, therapist: pending JAZZMINE SILVA reviewed by provider. LAST VISIT 11/23/25 UTOX: +bup, armando, opi, fen, thc [...] ambulation, walking with a limp. He showed movie writer and MYRON Tomas who assisted with interpretation his foot and ankle. Right ankle was swollen, area on top of left foot and bottom of the top of left ankle was hardened to touch. He said he had injected in two areas on his foot area. Tribunal Member noted blackened left middle toenail bed. Pt stated it became blackened after he injected into his foot. Tribunal Member strongly encouraged him to go to the [facility] to be seen to avoid any further damageor injury to the area and risks of refusing assessment and treatment. He said he would but right now he had to go [place] [facility] [place] girlfriend had an appt. He was strongly encouraged to be seen in theER at [facility]. He agreed to f/u. Plan: Buprenorphine-naloxone dosing schedule of 16/4 mg daily and management of side effects reviewed. Recovery support, risk reduction (including Narcan), and behavioral health attendance reviewed. Appointment for 1 week given. Patient expressed understanding and agreement with continuing plan of care. TODAY 11/30/25 UTOX: oral swab obtained Patient presented today for OBAT RN IN PERSON VISIT for Opioid Use Disorder. He is alert and oriented. Speech clear, coherent and goal directed. Easily engaged and initiates conversation. Continues with IVDU, last illicit opiate use yesterday. Reviewed dose and he agreed to a dose increase from 8/2mg bid to 8/2 mg tid. Tribunal Member encouraged him to wait until he was in some withdrawal, then to start the suboxone with a small piece at first to see how he did, to avoid precipitated withdrawal. He said he'd been through that 3 times and is well aware of it. He said he went to the [facility] last week for evaluation and treatment of his right foot for 3 nights and received IV antibiotics per his report. He was cleansing the right foot and ankle with some antiseptic pads that he had onhis person. The blackened left middle toenail that movie writer had observed last week has now fallen off. He said he was not provided with any suboxone at the hospital when he had asked for it. He said helasted 3 nights, then he left d/t w/d symptoms. He also said that a script for an antibiotic was sent to a [facility] pharmacy, but that he did not pick it up yet. He also reported that the hospital has tried calling him to return to the hospital for further treatment. His right foot remains red and swollen, the redness is advancing to his ankle. He is having difficulty ambulating. Tribunal Member reviewed the risk of further injury/damage to the area and if he did not get treatment, he may be at risk of losing his foot. He verbalized understanding. He has no place to stay. Tribunal Member and MYRON Parmar encouraged him several times during the appt to return to the hospital. Transportation services were offered. Tribunal Member offered to write a letter stating that he is currently a patient here with the prescription details. Both were declined. Plan: Buprenorphine-naloxone dosing schedule of 24/6 mg daily and management of side effects [...] Care Team (Late st Contact Info) Description 12/07/2025 10:15 AM EST Clinical Support [facility] [address] [place] [id number] Sylwia Dior RN 12/14/2025 10:45 AM EST Office Visit [facility] [address] [place] [phone] Maximino Garcia MD [address] [place] [id number] Scheduled Orders Name Type Priority Associated Diagnoses Orde r Schedule Drug Toxicology Monitoring Base Panel, w/Confirmation, Oral Fluid Lab Routine Uncomplicated opioid dependence (CMS/HCC) (HCC) Ordered: 11/30/2025 documented as of this encounter Visit Diagnoses Diagnosis Uncomplicated opioid dependence (CMS/HCC) (HCC)- Primary documented in this encounter Additional Health Concerns Assessment Noted Time PHQ-9 Depression Total Score: 21 025 1:19 PM EST documented as of this encounter
--- OUTSIDE RECORDS SUMMARY | 2025-11-30 19:09 | XMS_ITS | Encounter Summary ---
Author Organization [employer] [facility] Address [address] [facility] [address] [place] [address] Care Team Providers Care Prototype Engineer Name Role Phone Unavailable Primary Care Provider Unavailabl e Encounter Details Date Type Department Care Team (Late Contact Info) Description 11/24/2025 Orders Only GENERIC [...] Encounters Date Type Department Care Team (Late Contact Info) Description 12/07/2025 10:15 AM EST Clinical Support [facility] [address] [place] [address] Sylwia Dior RN 12/14/2025 10:45 AM EST Office Visit [facility] [address] [facility] [place] [address] Maximino Garcia MD [address] [facility] [place] [address] documented as of this encounter Procedures Procedure [...] Sedimentation Rate 3 1 - 15 MM/HR [facility] Comment:Patients with polycy themia and many hemoglobin abnormalitiesmay have depressed sed rates whereas patients with anemiamay have elevated sed rates. 11/24/2025 10:5 9 PM EST 11/24/2025 11:02 PM EST us Generic External Data Provider LAB BLOOD ORDERAB LES Final Result [facility] [address] [place] [address] [phone] * Lactic Acid (11/24/2025 10:53 PM EST) Lactic Acid 1.3 0.5 - 2.0 mmol/L [facility] 11/24/2025 10:5 3 PM EST 11/24/2025 10:56 PM EST us Generic External Data Provider LAB BLOOD ORDERAB LES Final Result Performing Organization Address [facility] Co de Phone Number [facility] [address] [place] [phone] * Acetaminophen level (11/24/2025 10:50 PM EST) Acetaminophen LAB <3 <30 mcg/mL [facility] 11/24/2025 10:5 0 PM EST 11/24/2025 10:52 PM EST us Generic External Data Provider LAB BLOOD ORDERAB LES Final Result Performing Organization Address [facility] Co de Phone Number [facility] [address] [place] [phone] * (ABNORMAL) Salicylate (11/24/2025 10:50 PM EST) Salicylate <5.0(L) 15 - 30 mg/dL [facility] 11/24/2025 10:5 0 PM EST 11/24/2025 10:52 PM EST us Generic External Data Provider LAB BLOOD ORDERAB LES Final Result Performing Organization Address [facility] de Phone Number [facility] [address] [place] [phone] * (ABNORMAL) C-reactive Protein (11/24/2025 10:50 PM EST) C Reactive Protein 0.96(H) < or = 0.50 mg/dL [facility] 11/24/2025 10:5 0 PM EST 11/24/2025 10:52 PM EST us Generic External Data Provider LAB BLOOD ORDERAB LES Final Result [facility] [address] [place], [place] [phone] * (ABNORMAL) Comprehensive Metabolic Panel (11/24/2025 10:50 PM EST) Sodium 142 135 - 145 mmol/L [facility] Potassium 3.2(L) 3.3 - 5.1 mmol/L [facility] Chloride 105 96 - 108 mmol/L [facility] Carbon Dioxide 28 22 - 29 mmol/L [facility] Anion Gap 12 12 - 20 [facility] Urea Nitrogen (BUN) 10 9 - 16 mg/dL [facility] Creatinine, Serum 0.78 0.5 - 1.4 mg/dL [facility] Creatinine Clr Calc Pharmacy 144.2 [facility] Comment:eGFR (calculated fro m the MDRD study equation) and eCrCl(calculated from the Cockcroft-Gault equation) are based ondifferent parameters and may not yield comparable results.If eCrCl result is absurd, please check patient'sheight/weight. Estimated Glomerular Filt Rate >60 [facility] Comment:Chronic Kidney Disea se: Estimated GFR < 60 mL/min/[id number] Kidney Disease: Estimated GFR < 15 mL/min/1.73m2 Glucose 133(H) 60 - 115 mg/dL [facility] Calcium 8.7 8.4 - 10.2 mg/dL [facility] Bilirubin, Total 1.0 0.0 - 1.0 mg/dL [facility] Aspartate Amino Transferase 72(H) 5 - 37 U/L [facility] Alanine Aminotransferase 61(H) 0 - 40 U/L [facility] Total Protein 6.9 6.5 - 8.0 g/dL [facility] Albumin Level 4.3 3.5 - 5.0 g/dL [facility] Alkaline Phosphatase 62 39 - 117 U/L [facility] 11/24/2025 10:5 0 PM EST 11/24/2025 10:52 PM EST us Generic External Data Provider LAB BLOOD ORDERAB LES Final Result [facility] [address] [place] [address] [phone] * (ABNORMAL) CBC auto differential (11/24/2025 10:50 PM EST) White Blood Count 6.2 4.8 - 10.8 X10*3/uL [facility] Red Blood Count 4.35(L) 4.60 - 5.80 X10*6/uL [facility] Hemoglobin 12.3(L) 14.0 - 18.0 g/dl [facility] Hematocrit 37.1(L) 42.0 - 52.0 % [facility] Mean Corpuscular Volume 85.3 80.0 - 98.0 fL [facility] Mean Corpuscular Hemoglobin 28.3 27.0 - 33.0 pg [facility] Mean Corpuscular HGB Conc 33.2 31.0 - 36.0 g/dl [facility] Red Cell Distribution Width 13.0 11.0 - 16.0 % [facility] Platelet Count 147(L) 160 - 400 X10*3/uL [facility] Mean Platelet Volume 11.7 9.4 - 12.4 fL [facility] Neutrophils Percent Auto 74.8(H) 45 - 73 % [facility] Imm Gran Pct Auto 0.2 0.0 - 0.4 % [facility] Lymphocytes Percent Auto 16.1(L) 20 - 40 % [facility] Monocytes Percent Auto 8.2 2 - 11 % [facility] Eosinophils Percent Auto 0.2 0 - 4 % [facility] Basophils Percent Auto 0.5 0 - 2 % [facility] NRBC Pct Auto 0.0 0.0 - 0.2 /100WBC [facility] Neutrophils Absolute Auto 4.6 2.0 - 8.3 x10*3/uL [facility] Imm Gran Abs Auto 0.01 0.00 - 0.03 X10*3/uL [facility] Lymphocytes Absolute Auto 1.0(L) 1.2 - 4.9 X10*3/uL [facility] Monocytes Absolute Auto 0.5 0.1 - 1.2 X10*3/uL [facility] Eosinophils Absolute Auto 0.0 0.0 - 0.4 X10*3/uL [facility] Basophils Absolute Auto 0.0 0.0 - 0.2 X10*3/uL [facility] NRBC Abs Auto 0.000 0.0 - 0.012 X10*3/uL [facility] 11/24/2025 10:5 0 PM EST 11/24/2025 10:52 PM EST us Generic External Data Provider LAB BLOOD ORDERAB LES Final Result Performing Organization Address City/State/[facility] Co de Phone Number [facility] [address] [place] [address] [phone] documented in this encounter Visit Diagnoses Not on filedocumented in this encounter Additional Health Concerns Assessment Noted Time PHQ-9 Depression Total Score: 21 11/16/ 025 1:19 PM EST documented as of this encounter
--- OUTSIDE RECORDS SUMMARY | 2025-11-30 19:09 | XMS_ITS | Encounter Summary ---
Author Organization [employer] Address [address] [facility] 7t [place] [address] Care Team Providers Care Hand Almond Blancher Name Role Phone Unavailable Primary Care Provider Unavailabl e Reason for Visit * Reason Onset Date Comments Med Refill 11/30/2025 Encounter Details Date Type Department Care Team ([facility] Contact Info) Description 11/30/2025 Refill [facility] [address] [place] [address] Sylwia Dior RN Uncomplicated opioid dependence (CMS/HCC) ([facility]) Social History Tobacco Use Types Packs/Day Years [...] Description 12/07/2025 10:15 AM EST Clinical Support [facility] [address] [place] [phone] Sylwia Dior RN 12/14/2025 10:45 AM EST Office Visit [facility] [address] [place] [phone] Maximino Garcia MD [address] [place] [phone] documented as of this encounter Visit Diagnoses Diagnosis Uncomplicated opioid dependence (CMS/HCC) (HCC) documented in this encounter Additional Health Concerns Assessment Noted Time PHQ-9 Depression Total Score: 21 11/16/ 025 1:19 PM EST documented as of this encounter
--- OUTSIDE RECORDS SUMMARY | 2025-11-30 19:09 | XMS_ITS | Encounter Summary ---
Author Organization [employer] [facility] Address [address] [facility] 7t [place] [address] Care Team Providers Care Digital Composer Name Role Phone Unavailable Primary Care Provider Unavailabl e Encounter Details Date Type Department Care Team (Late st Contact Info) Description 01/11/2025 Orders Only [facility] [address] [place] [phone] Ray Villegas MD [address] [place] [phone] Social History Tobacco Use Types Packs/Day Years [...] Description 12/07/2025 10:15 AM EST Clinical Support [facility] [address] [place] [phone] Sylwia Dior RN 12/14/2025 10:45 AM EST Office Visit [facility] [address] [place] [phone] Maximino Garcia MD [address] [place] [phone] documented as of this encounter Visit Diagnoses Not on filedocumented in this encounter
--- OUTSIDE RECORDS SUMMARY | 2025-11-30 19:09 | XMS_ITS | Encounter Summary ---
Author Organization [employer] Address [address] [facility] [address]t [place] [address] Care Team Providers Care Professor Of Literature Name Role Phone Unavailable Primary Care Provider Unavailabl e Encounter Details Date Type Department Care Team (Late Contact Info) Description 03/10/2025 Telephone [facility] [address] [place] [phone] Maximino Garcia MD [address] [place] [phone] Social History Tobacco Use Types Packs/Day Years [...] Description 12/07/2025 10:15 AM EST Clinical Support [address] [address] Sylwia Dior RN 12/14/2025 10:45 AM EST Office Visit [address] [address] Maximino Garcia MD [address] [place] [address], [place] [address] documented as of this encounter Visit Diagnoses Not on filedocumented in this encounter Additional Health Concerns Assessment Noted Time PHQ-9 Depression Total Score: 21 02/16/ 025 11:24 AM EDT documented as of this encounter
--- OUTSIDE RECORDS SUMMARY | 2025-11-30 19:10 | XMS_ITS | Clinical Summary ---
Author Organization [employer] Address [address] [facility] 7t [place] [address] Care Team Providers Care Director Of [employer] Name Role Phone Unavailable Primary Care Provider [...] (HCC) Place 1 Film under the tongue 3 times daily. 21 Film 5 4:53 PM EST 11/30/20 25 026 Active buprenorphine -naloxone (Suboxone) 12-3 MG per [...] eorder (will not trigger notification to Pharmacy)) Buprenorphine HCl-Naloxone HCl (Suboxone) 8-2 MG SL filmIndicatio ns:Uncomplica daisy opioid dependence (CMS/HCC) (HCC) Place 1 Film under the tongue 2 times daily. 14 Film 5 10:55 AM EST 11/22/20 25 025 Discontinued(R eorder (will not trigger [...] organization. Date Type Department Care Team Description 11/30/2025 11:15 AM EST Clinical Support [facility] [address] [place] [phone] Sylwia Dior RN Uncomplicated opioid dependence (CMS/HCC) (HCC) (Primary Dx) 11/30/[address] [address] Sylwia Dior RN Uncomplicated opioid dependence (CMS/HCC) (HCC) 11/24/2025 Orders Only GENERIC EXTERNAL DATA DEPARTMENT Provider, Generic External Data 11/23/2025 10:45 AM EST Clinical Support [address] [address] Sylwia Dior RN Uncomplicated opioid dependence (CMS/HCC) (HCC) (Primary Dx); Tobacco use disorder; Cocaine use 11/23/2025 Orders Only GENERIC EXTERNAL DATA DEPARTMENT Provider, Generic External Data 11/23/[address] [address] Ree Richardson RN hep c tx 11/23/2025 Travel 11/17/[address] [address] Sylwia Dior RN Uncomplicated opioid dependence ([facility]/HCC) (HCC) 11/16/2025 11:15 AM EST Office Visit [address] [address] Maximino Garcia MD Uncomplicated opioid dependence ([facility]/HCC) (HCC) (Primary Dx); Tobacco use disorder; Cocaine use 11/16/2025 10:30 AM EST Office Visit [address] [address] Ree Richardson RN Uncomplicated opioid dependence ([facility]/HCC) (HCC) 11/16/2025 Orders Only [address] [address] Ree Richardson, conference services coordinator 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 11/16/[address] [address] Ree Richardson RN 11/16/2025 Telephone [facility] [address] [place] [address] Ree Richardson RN 11/16/2025 Travel from Last [...] with others, in a hotel, in a halfway, living outside on the street, on a [...] Description 12/07/2025 10:15 AM EST Clinical Support [facility] [address] [place] [phone] Sylwia Dior RN 12/14/2025 10:45 AM EST Office Visit [facility] [address] [place] [phone] Maximino Gacria MD [address] [place] [address] Health Maintenance Due Date Last Done Comments [...] Sedimentation Rate 3 1 - 15 MM/HR [facility] Comment:Patients with polycy themia and many hemoglobin abnormalitiesmay have depressed sed rates whereas patients with anemiamay have elevated sed rates. 11/24/2025 10:5 9 PM EST 11/24/2025 11:02 PM EST Generic External Data Provider LAB BLOOD ORDERAB LES Final Result Performing Organization Address [facility] Co de Phone Number [facility] [address] [place] [phone] * Lactic Acid (11/24/2025 10:53 PM EST) Only the most recent of2 resultswithin the time period is included. Pathologist [place] [facility] Lactic Acid 1.3 0.5 - 2.0 mmol/L [facility] 11/24/2025 10:5 3 PM EST 11/24/2025 10:56 PM EST [employer] External Data Provider LAB BLOOD ORDERAB LES Final Result Performing Organization Address [facility] Co de Phone Number [facility] [address] [place] [phone] * (ABNORMAL) CBC auto differential (11/24/2025 10:50 PM EST) Pathologist [facility] White Blood Count 6.2 4.8 - 10.8 X10*3/uL [facility] Red Blood Count 4.35(L) 4.60 - 5.80 X10*6/uL [facility] Hemoglobin 12.3(L) 14.0 - 18.0 g/dl [facility] Hematocrit 37.1(L) 42.0 - 52.0 % [facility] Mean Corpuscular Volume 85.3 80.0 - 98.0 fL [facility] Mean Corpuscular Hemoglobin 28.3 27.0 - 33.0 pg [facility] Mean Corpuscular HGB Conc 33.2 31.0 - 36.0 g/dl [facility] Red Cell Distribution Width 13.0 11.0 - 16.0 % [facility] Platelet Count 147(L) 160 - 400 X10*3/uL [facility] Mean Platelet Volume 11.7 9.4 - 12.4 fL [facility] Neutrophils Percent Auto 74.8(H) 45 - 73 % [facility] Imm Gran Pct Auto 0.2 0.0 - 0.4 % [facility] Lymphocytes Percent Auto 16.1(L) 20 - 40 % [facility] Monocytes Percent Auto 8.2 2 - 11 % [facility] Eosinophils Percent Auto 0.2 0 - 4 % [facility] Basophils Percent Auto 0.5 0 - 2 % [facility] NRBC Pct Auto 0.0 0.0 - 0.2 /100WBC [facility] Neutrophils Absolute Auto 4.6 2.0 - 8.3 x10*3/uL [facility] Imm Gran Abs Auto 0.01 0.00 - 0.03 X10*3/uL [facility] Lymphocytes Absolute Auto 1.0(L) 1.2 - 4.9 X10*3/uL [facility] Monocytes Absolute Auto 0.5 0.1 - 1.2 X10*3/uL [facility] Eosinophils Absolute Auto 0.0 0.0 - 0.4 X10*3/uL [facility] Basophils Absolute Auto 0.0 0.0 - 0.2 X10*3/uL [facility] NRBC Abs Auto 0.000 0.0 - 0.012 X10*3/uL [facility] 11/24/2025 10:5 0 PM EST 11/24/2025 10:52 PM EST us Generic External Data Provider LAB BLOOD ORDERAB LES Final Result [facility] [address] [place] [address] [phone] * (ABNORMAL) C-reactive Protein (11/24/2025 10:50 PM EST) Only the most recent of2 resultswithin the time period is included. C Reactive Protein 0.96(H) < or = 0.50 mg/dL [facility] 11/24/2025 10:5 0 PM EST 11/24/2025 10:52 PM EST us Generic External Data Provider LAB BLOOD ORDERAB LES Final Result Performing Organization Address [facility] Co de Phone Number [facility] [address] [place] [phone] * Acetaminophen level (11/24/2025 10:50 PM EST) Acetaminophen LAB <3 <30 mcg/mL [facility] 11/24/2025 10:5 0 PM EST 11/24/2025 10:52 PM EST us Generic External Data Provider LAB BLOOD ORDERAB LES Final Result Performing Organization Address [facility] Phone Number [facility] [address] [place] [phone] * (ABNORMAL) Salicylate (11/24/2025 10:50 PM EST) Salicylate <5.0(L) 15 - 30 mg/dL [facility] 11/24/2025 10:5 0 PM EST 11/24/2025 10:52 PM EST Generic External Data Provider LAB BLOOD ORDERAB LES Final Result Performing Organization Address [facility] [address] [place] [phone] * (ABNORMAL) Comprehensive Metabolic Panel (11/24/2025 10:50 PM EST) Only the most recent of2 resultswithin the time period is included. Sodium 142 135 - 145 mmol/L [facility] Potassium 3.2(L) 3.3 - 5.1 mmol/L [facility] Chloride 105 96 - 108 mmol/L [facility] Carbon Dioxide 28 22 - 29 mmol/L [facility] Anion Gap 12 12 - 20 [facility] Urea Nitrogen (BUN) 10 9 - 16 mg/dL [facility] Creatinine, Serum 0.78 0.5 - 1.4 mg/dL [facility] Creatinine Clr Calc Pharmacy 144.2 [facility] Comment:eGFR (calculated fro m the MDRD study equation) and eCrCl(calculated from the Cockcroft-Gault equation) are based ondifferent parameters and may not yield comparable results.If eCrCl result is absurd, please check patient'sheight/weight. Estimated Glomerular Filt Rate >60 [facility] Comment:Chronic Kidney Disea se: Estimated GFR < 60 mL/min/[id number] Kidney Disease: Estimated GFR < 15 mL/min/1.73m2 Glucose 133(H) 60 - 115 mg/dL [facility] Calcium 8.7 8.4 - 10.2 mg/dL [facility] Bilirubin, Total 1.0 0.0 - 1.0 mg/dL [facility] Aspartate Amino Transferase 72(H) 5 - 37 U/L [facility] Alanine Aminotransferase 61(H) 0 - 40 U/L [facility] Total Protein 6.9 6.5 - 8.0 g/dL [facility] Albumin Level 4.3 3.5 - 5.0 g/dL [facility] Alkaline Phosphatase 62 39 - 117 U/L [facility] 11/24/2025 10:5 0 PM EST 11/24/2025 10:52 PM EST us Generic External Data Provider LAB BLOOD ORDERAB LES Final Result [facility] [address] [place] [address] [phone] * (ABNORMAL) POCT CRISTIANA-14 Urine Drug [...] from Last 3 Months Insurance [employer] [facility] C3
== END 2025-11-30 17:04 | disposition home or self-care (01) ==
LOC: HO.HHCLNP 17:03
PROVIDERS: Visit Provider Emergency Medicine
DX: F11.20 Opioid dependence, uncomplicated (principal)
CPT/HCPCS: 36415; 80307